=== PATIENT | female | born 1950 | race Caucasian/White ===

== ENCOUNTER → 2018-07-16 10:08 | Outpatient (CLI) | payer MEDICARE, SELFPAY ==
--- NOTE | 2018-07-16 10:26 | RAD_ITS ---
STUDY: X-RAY - PELVIS REASON FOR EXAM: Female, 67 years old. Pain in both hips. History of psoriatic arthropathy. TECHNIQUE: One view of the pelvis was obtained. COMPARISON: None. FINDINGS: There is a non-specific bowel gas pattern. Normal visualized soft tissue structures. Normal bilateral iliac wings, sacroiliac joints and visualized sacrum. Normal visualized bilateral superior and inferior pubic rami. Normal pubic symphysis. Normal ischial tuberosities. Normal visualized right femoral head. Minimal spur in the right superior acetabular rim. Mild narrowing of the right hip joint space. Normal visualized left femoral head. Normal left acetabulum. Normal left hip joint. RAD/Pelvis 1 or 2 Views IMPRESSION: 1. Minimal spur in the right superior acetabular rim and mild narrowing of the right hip joint space. 2. Normal pelvis and left hip. Electronically Signed: Meet Sales MD at 10:51 EDT , Service support ,
[2018-07-16 12:15] LABS: Absolute Lymphocyte Count 2.24 X10^3/ul (0.83-4.51); Absolute Neutrophil Count 5.5 X10^3/uL (2.0-7.7); Basophil# 0.05 X10^3/uL; Basophil% 0.6 % (0-1); Eosinophil# 0.21 X10^3/uL; Eosinophils% 2.5 % (0-5); Hematocrit 36.8 % (37-47); Hemoglobin 11.3 g/dl (12.0-15.0); Lymphocyte # 2.24 X10^3/ul (4.0); Lymphocyte % 26.9 % (19-41); Mean Corp Hgb Conc 30.7 g/gl (32-36); Mean Corpuscular Volume 91.1 fL (81-99); Mean Platelet Vol. 8.8 fl (6.2-12.0); Monocyte# 0.35 X10^3/uL; Monocyte% 4.2 % (0-10); Neutrophil # 5.46 X10^3/uL (2.7-7.7); Neutrophil % 65.6 % (47-70); POSITIVE COUNT NO; POSITIVE DIFFERENTIAL NO; POSITIVE MORPHOLOGY NO; Platelet Count 277 K/mm3 (150-450); RBC Distribution Width CV 15.3 % (11.6-14.6); RBC Distribution Width SD 50.9 fl (35.1-43.9); Red Blood Count 4.04 M/mm3 (4.2-5.4); White Blood Count 8.3 K/mm3 (4.4-11.0)
[2018-07-16 12:20] LABS: ALB/GLOB Ratio 0.8 RATIO (0.9-2.4); AST(SGOT) 20 U/L (15-37); Alanine Aminotransfer ALT/SGPT 20 U/L (13-56); Albumin, Serum 3.7 g/dL (3.2-5.0); Alkaline Phosphatase 94 U/L (45-117); Anion Gap 8 (5-15); BUN 20 mg/dL (7-18); Calcium,Total 9.4 mg/dL (8.5-10.1); Chloride 99 mmol/L (98-107); Creatinine, Serum 1.05 mg/dL (0.55-1.02); EST Glomerular Filtration Rate 56 mL/min (>60); Est Glom Filt Rate - Afr Amer 67 mL/min (>60); Globulin 4.4 g/dL (2.2-4.2); Glucose 111 mg/dL (74-106); Potassium 4.1 mmol/L (3.5-5.1); Protein, Total 8.1 g/dL (6.4-8.2); Rheumatoid Factor < 10.0 IU/mL (<15); Sodium Level 138 mmol/L (136-145)
[2018-07-18 12:21] LABS: ANTINUCLEAR ANTIBODIES DIRECT Negative (Negative)
[2018-07-19 16:07] LABS: QNTFERON TB Mitogen Value > 10.00 IU/mL (.); QNTFERON TB Nil Value 0.03 IU/mL (.); QNTFERON TB1+ Ag Value 0.02 IU/mL (.); QNTFERON TB2+ Ag Value 0.02 IU/mL (.)
[2018-07-20 11:42] LABS: CCP IgG Antibodies 19 units (0-19); HEPATITIS B SURFACE AG Negative (Negative); HLA B27 Negative (.); Hep B Surface Antibodies Non Reactive (.); Hep C Antibodies <0.1 s/co ratio (0.0-0.9); QNTIFERON TB Positive Criteria Negative (Negative)
== END ==
PROVIDERS: Referring Provider Internal Medicine Rheumatology; Visit Provider Internal Medicine Rheumatology
DX: L40.59 Other psoriatic arthropathy (principal); M15.9 Polyosteoarthritis, unspecified; I11.0 Hypertensive heart disease with heart failure; I50.9 Heart failure, unspecified; E78.5 Hyperlipidemia, unspecified; E03.9 Hypothyroidism, unspecified; R51 Headache; G47.33 Obstructive sleep apnea (adult) (pediatric); E66.9 Obesity, unspecified; I69.30 Unspecified sequelae of cerebral infarction
CPT/HCPCS: 36415; 72170; 80053; 81374; 85025; 86038; 86200; 86431; 86480; 86706; 86803; 87340

== ENCOUNTER → 2019-03-26 11:30 | Outpatient (CLI) | payer MEDICARE, SELFPAY ==
[2019-03-26 09:38] VITALS: BMI 52.3
[2019-03-26 12:35] LABS: Rheumatoid Factor < 10.0 IU/mL (<15)
[2019-03-27 13:18] LABS: ANTINUCLEAR ANTIBODIES DIRECT Negative (Negative)
[2019-03-29 09:43] LABS: CCP IgG Antibodies 12 units (0-19); Perinuclear Ab (P-ANCA) 1:20 titer (Neg:<1:20)
== END ==
PROVIDERS: Family Provider Internal Medicine; PCP Internal Medicine; Referring Provider Internal Medicine Critical Care Medicine; Visit Provider Internal Medicine Critical Care Medicine
DX: I25.10 Atherosclerotic heart disease of native coronary artery without angina pectoris (principal); Z98.61 Coronary angioplasty status; J98.4 Other disorders of lung; R06.02 Shortness of breath
CPT/HCPCS: 36415; 83880; 86038; 86200; 86225; 86235; 86256; 86431

== ENCOUNTER → 2019-04-03 13:02 | Outpatient (CLI) | payer MEDICARE, SELFPAY ==
[2019-03-26 09:38] VITALS: BMI 52.3
--- NOTE | 2019-04-03 13:03 | CT_ITS ---
STUDY: CT CHEST WITHOUT CONTRAST REASON FOR EXAM: Female, 68 years old. PT STATED SHORT OF BREATH, R/O RESTRICTIVE LUNG DISEASE RADIATION DOSAGE (If Supplied By Facility): CTDIvol = ( 28.71 ) mGy, DLP = ( 963.52 ) mGycm TECHNIQUE: Transaxial imaging was performed without the administration of intravenous contrast material. Multiplanar coronal and sagittal images were reformatted. Individualized dose optimization techniques were used for this CT. COMPARISON: None. FINDINGS: There is evidence of emphysematous changes with bullous formation. This evidence of linear scarring with bronchiectasis in the left lower lobe and to a lesser degree in the right lower lobe. There is evidence of a nonspecific bilateral diffuse areas of groundglass appearance. This is suggestive of a chronic interstitial scarring. There is no demonstrated pleural abnormality. There are calcifications of the coronary arteries. Normal mediastinum. Normal hilar regions. Normal unenhanced pulmonary arteries. There is atherosclerotic calcification of the aortic arch with tortuosity and elongation of the aortic arch and descending thoracic aorta. There are multi-level degenerative changes of the thoracic spine. There is no demonstrated abnormality of the visualized upper abdomen. CT/Chest without Contrast IMPRESSION: Findings in keeping with the scarring at the lung bases worse on the left side with bronchiectasis. Scattered bilateral areas of groundglass appearance. Electronically Signed: Efren Johnson, at 8:44 EST , Service support ,
== END ==
PROVIDERS: PCP Internal Medicine; Referring Provider Internal Medicine Critical Care Medicine; Visit Provider Internal Medicine Critical Care Medicine
DX: J98.4 Other disorders of lung (principal)
CPT/HCPCS: 71250

== ENCOUNTER → 2019-04-30 09:27 | Outpatient (CLI) | payer MEDICARE, SELFPAY ==
[2019-04-29 13:18] VITALS: BMI 52.7
[2019-04-30 10:25] LABS: Anion Gap 3 (5-15); BUN 14 mg/dL (7-18); BUN/Creat Ratio 14.5 RATIO (10-20); Calcium,Total 8.8 mg/dL (8.5-10.1); Chloride 104 mmol/L (98-107); Creatinine, Serum 0.96 mg/dL (0.55-1.02); EST Glomerular Filtration Rate 61 mL/min (>60); Est Glom Filt Rate - Afr Amer 74 mL/min (>60); Glucose 119 mg/dL (74-106); Potassium 3.8 mmol/L (3.5-5.1); Sodium Level 143 mmol/L (136-145)
[2019-04-30 10:34] LABS: BNP,B-Type NATRIURETIC PEPTIDE 363.5 pg/mL (0-100)
== END ==
PROVIDERS: PCP Internal Medicine; Referring Provider Internal Medicine Critical Care Medicine; Visit Provider Internal Medicine Critical Care Medicine
DX: I50.9 Heart failure, unspecified (principal); R76.8 Other specified abnormal immunological findings in serum; J96.11 Chronic respiratory failure with hypoxia
CPT/HCPCS: 36415; 80048; 83880

== ENCOUNTER 2019-05-03 12:32 | Inpatient (IN) | payer MEDICARE, SELFPAY ==
[2019-04-29 13:18] VITALS: BMI 52.7
[2019-05-03] VITALS (13 sets, daily range): BP systolic 108–145; BP diastolic 59–95; PULSE 78–115; RESP 16–22; TEMP 36.6–37.2; O2SAT 95–100; BMI 52.0
--- NOTE | 2019-05-03 13:16 | EKG12_ITS ---
Test Reason : SOB Blood Pressure : / mmHG Vent. Rate : 104 BPM Atrial Rate : 092 BPM P-R Int : 000 ms QRS Dur : 078 ms QT Int : 316 ms P-R-T Axes : 000 078 043 degrees QTc Int : 415 ms Atrial fibrillation with rapid ventricular response Low voltage QRS Abnormal ECG Confirmed by JOSUE LEWIS, JOVITA ([id number]), subeditor MOOK WORKMAN ([id number]) on 05/06/2019 2:06:56 PM Referred By: LIDYA Confirmed By:ZARA SALAS MD
--- NOTE | 2019-05-03 13:16 | RAD_ITS ---
STUDY: X-RAY CHEST REASON FOR EXAM: Female, 68 years old. DYSPNEA TECHNIQUE: PA and lateral views of the chest. COMPARISON: None. FINDINGS: EKG electrodes are seen. There is evidence of vascular congestion and mild degree of CHF. There is no demonstrated pleural abnormality. There is mild cardiac enlargement. Normal mediastinum and giorgio. Normal visualized pulmonary arteries. There is atherosclerotic calcification of the aortic arch with tortuosity. Normal visualized thoracic spine. Normal visualized ribs, clavicles, and shoulders. There is no demonstrated abnormality of the visualized soft tissue structures of the upper abdomen. RAD/Chest PA and Lateral IMPRESSION: Basilar congestion and mild degree of CHF. Mild cardiomegaly. Electronically Signed: Efren Johnson, at 13:59 EST , Service support ,
--- NOTE | 2019-05-03 13:17 | ED.DCSUM_ITS ---
History of Present Illness Chief Complaint: Shortness of Breath Informant: Patient Narrative: Patient presents the emergency department with difficulty maintaining her oxygen saturations on 6 L nasal cannula with exertion. She was seen by Dr. Harmon from pulmonology on the of this month. She is been diagnosed with a restrictive ventilatory impairment on PFTs. She has a history of obstructive sleep apnea and obesity. She has chronic hypoxic respiratory failure and is chronically on home O2. She also has a component of CHF and on CT in March noted an area of bronchiectasis in the left lower lobe with nonspecific bilateral groundglass changes. Methotrexate, for which she has been taking for psoriatic arthritis, has been on hold since the . She is also increased her Lasix from 20 mg to 40 mg since the . She notes her legs are more swollen than normal. She recently had a couple cardiac stents placed at [facility]. After her pulmonology visit on the her nasal cannula was increased to 6 L and her Lasix up to 40. She tells me today with exertion she was down to 79%. She is also on Coumadin for atrial fibrillation. She tells me that recently her INR was supratherapeutic. Past Medical History - Allergies and Home Meds Allergies/Adverse Reactions: Allergies No Known Allergies Allergy (Unverified 05/03/19 12:36) Primary Care Physician: Alejandra James DO [Primary Care Provider] - Smoking Status: Former smoker Review of Systems ROS: Unable to Obtain General: Denies: Chills, Fever, Sweats Eyes: Denies: Visual changes - bilaterally, Diplopia ENT: Denies: Rhinorrhea, Sore throat Cardiovascular: Denies: Chest pain, Palpitations Respiratory: Reports: Dyspnea, Dyspnea on exertion. Denies: Cough Gastrointestinal: Denies: Abdominal pain, Nausea, Vomiting, Diarrhea, Melena, Hematochezia Genitourinary: Denies: Dysuria, Hematuria, Frequency Musculoskeletal: Reports: Swelling. Denies: Back pain, Extremity Pain Skin: Denies: Rash, Wounds Neurological: Denies: Headache, Weakness, Numbness Physical Exam Vital Signs/Narrative: Vital Signs Temp Pulse Resp BP Pulse Ox 05/03/19 13:05 98.0 F 111 H 22 H 98 05/03/19 12:34 98 F 86 18 145/77 H 95 Inital Vital Signs reviewed: Yes General: Well nourished, Well developed, Obese, No Acute Distress Head: Normocephalic, Atraumatic Eyes: Perrl, EOMI ENT: Moist mucous membranes, No rhinorrhea Neck: Supple, Nontender Cardiovascular: No murmurs, Irregular, Tachycardia Respiratory: No distress, CTA bilaterally, Chest nontender Abdomen: Soft, Nontender, Nondistended, Normal bowel sounds Back: Nontender, Normal Inspection Extremities: Nontender, No edema Skin: Normal color, No rash Neurological: Alert, Oriented x3, Cranial nerves II-XII grossly intact, Normal Strength, Normal Sensation Psychological: Normal affect, Normal Mood Diagnostic/Tx/Re-eval - EKG Initial EKG Interpretation: Atrial Fibrillation - Atrial fibrillation with a rate of 104. Ectopy. - Medical Decision Making Patient's legs are more swollen than normal.. BNP is higher than it was the other day but only around 450. She becomes hypoxic with ambulation. She was given 60 mg of Lasix IV. Our plan is admission. Case was discussed with Dr. Carbajal and Dr. Penn ED Disposition - Plan for ED Patient: Disposition: Acute Care Hospital [facility] Diagnosis: CHF (congestive heart failure), Chronic respiratory failure, Hypoxemia Referrals: Alejandra James DO [Primary Care Provider] -
--- NOTE | 2019-05-03 13:20 | NURSING ---
NO OLD EKGS
[2019-05-03 13:41] LABS: Absolute Lymphocyte Count 1.33 X10^3/uL (0.83-4.51); Absolute Neutrophil Count 7.1 X10^3/uL (2.0-7.7); Basophil# 0.06 X10^3/uL; Basophil% 0.6 % (0-1); Eosinophil# 0.15 X10^3/uL; Eosinophils% 1.6 % (0-5); Hematocrit 32.7 % (37-47); Hemoglobin 9.7 g/dL (12.0-15.0); Lymphocyte # 1.33 X10^3/ul (4.0); Lymphocyte % 14.3 % (19-41); Mean Corp Hgb Conc 29.7 g/dL (32-36); Mean Corpuscular Hgb 29.6 pg (27.0-32.0); Mean Corpuscular Volume 99.7 fL (81-99); Mean Platelet Vol. 8.9 fl (6.2-12.0); Monocyte# 0.61 X10^3/uL; Monocyte% 6.6 % (0-10); NRBC Flagged by Analyzer 0 % (0-5); Neutrophil # 7.06 X10^3/uL (2.7-7.7); Neutrophil % 76.3 % (47-70); Platelet Count 221 K/mm3 (150-450); RBC Distribution Width CV 17.5 % (11.6-14.6); RBC Distribution Width SD 63.7 fl (35.1-43.9); Red Blood Count 3.28 M/mm3 (4.2-5.4); White Blood Count 9.3 K/mm3 (4.4-11.0)
[2019-05-03 13:58] LABS: ALB/GLOB Ratio 0.8 RATIO (0.9-2.4); AST(SGOT) 13 U/L (15-37); Alanine Aminotransfer ALT/SGPT 17 U/L (13-56); Albumin, Serum 3.1 g/dL (3.2-5.0); Alkaline Phosphatase 91 U/L (45-117); Anion Gap 3 (5-15); BUN 16 mg/dL (7-18); BUN/Creat Ratio 16.4 RATIO (10-20); Calcium,Total 8.5 mg/dL (8.5-10.1); Chloride 104 mmol/L (98-107); Creatinine, Serum 0.98 mg/dL (0.55-1.02); EST Glomerular Filtration Rate 60 mL/min (>60); Est Glom Filt Rate - Afr Amer 73 mL/min (>60); Estimated Creatinine Clearance 47.44 ml/min; Globulin 3.7 g/dL (2.2-4.2); Glucose 91 mg/dL (74-106); Potassium 3.7 mmol/L (3.5-5.1); Protein, Total 6.8 g/dL (6.4-8.2); Sodium Level 141 mmol/L (136-145)
[2019-05-03 14:00] LABS: International Normalized Ratio 2.1; Prothrombin Time (Protime)PT. 23.3 SECONDS (11.7-14.9)
[2019-05-03 14:11] LABS: BNP,B-Type NATRIURETIC PEPTIDE 436.5 pg/mL (0-100)
--- NOTE | 2019-05-03 16:24 | NURSING ---
MED SURG [facility] CHF, HYPOXIA, CRF
[2019-05-03] MEDS: Furosemide 100 MG/10 ML Vial 60 MG IV (16:27)
--- NOTE | 2019-05-03 17:16 | PCM.HP.STD ---
History of Present Illness Date of Admission: 05/03/19 Chief Complaint: SOB The patient is a 68 year old F with a PMH as below who presents with shortness of breath. 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 She came to [place] [facility] in March and some medication adjustments were made however she is remained short of breath. She was told when she was seen by pulmonology a few days ago to increase her Lasix for 3 days which she did on Monday, Monday, and . She states that she went back to taking her normal 20 mg of Lasix today however she has noticed that her legs have gotten more edematous over time. Unfortunately her care is spread out through multiple different health systems and this is the first time she is been to this institution. She states that she called her geospatial technologist today who asked her to come into the hospital for further evaluation, because with ambulation she says she was going down into the 70s, but at rest her oxygen was staying stable in the high 80s to low 90s. In the ER she was found to have a hemoglobin of 9.7 with a normal creatinine and elevated BNP to 436, this is steadily climbed from 323 on March 26, 2019. Chest x-ray in the ER shows basilar congestion and a mild degree of CHF. Past Medical History Past Medical History (Chronic Problems): Chronic Problems (Last Reviewed 03/26/19 @ 09:47 by Deena Arthur) Chronic respiratory failure (Chronic) Hypertension (Chronic) Medical History: Medical History (Last Reviewed 03/26/19 @ 09:47 by Deena Arthur) Depression (Acute) F32.9 CVA (cerebral vascular accident) (Acute) I63.9 Afib (Acute) I48.91 Pulmonary HTN (Acute) I27.20 Pneumonia (Acute) J18.9 Vitamin D deficiency (Acute) E55.9 Thyroid disease (Acute) E07.9 Sleep apnea (Acute) G47.30 Screening for breast cancer (Acute) Z12.39 RVH (right ventricular hypertrophy) (Acute) I51.7 Psoriatic arthritis (Acute) L40.50 Postoperative carotid endarterectomy surveillance, encounter for (Acute) Z48.812 Hypercholesterolemia (Acute) E78.00 Hypertension (Chronic) I10 History of CVA (cerebrovascular accident) (Acute) Z86.73 Enlarged heart (Acute) I51.7 Edema (Acute) R60.9 CAD S/P percutaneous coronary angioplasty (Acute) I25.10, Z98.61 Atrial flutter (Acute) I48.92 History of normal mammogram (Resolved) History of carotid artery reconstruction (Resolved) History of cardiac catherization with stent placement (Resolved) Allergies No Known Allergies Allergy (Unverified 05/03/19 12:36) Home Medications: Ambulatory Orders Medication Instructions Recorded clopidogrel 75 mg tablet 75 mg PO DAILY 03/25/19 ergocalciferol (vitamin D2) 1,250 1,250 mcg PO QWEEK 03/25/19 mcg (50,000 unit) capsule furosemide 20 mg tablet 20 mg PO DAILY 03/25/19 levothyroxine 137 mcg capsule 137 mcg PO DAILY 03/25/19 losartan 50 mg tablet 50 mg PO DAILY 03/25/19 metoprolol succinate 25 mg capsule 25 mg PO DAILY 03/25/19 sprinkle, ext. release 24 hr aspirin 81 mg tablet,delayed 81 mg PO DAILY 03/26/19 release warfarin 1 mg tablet 2 mg PO DAILY tab 03/26/19 ferrous sulfate 325 mg (65 mg 325 mg PO DAILY #1 tab 04/30/19 iron) tablet Atorvastatin Calcium 40 mg PO DAILY 05/03/19 Folic Acid 2 mg PO DAILY 05/03/19 Hydrocodone/Acetaminophen [Douglas 1 ea PO PRN PRN 05/03/19 5-325 Tablet] Melatonin [Vitajoy] 2.5 mg PO DAILY PRN 05/03/19 Prednisone 10 mg PO PRN PRN 05/03/19 Surgical History: Surgical History (Last Reviewed 04/30/19 @ 10:[address] Alfa Harmon, DO) H/O tubal ligation (Resolved) Z98.51 History of hysterectomy (Resolved) Z90.710 History of colonoscopy (Resolved) Z98.890 History of cataract surgery (Resolved) Z98.49 History of breast biopsy (Resolved) Z98.890 History of appendectomy (Resolved) Z90.49 Smoking Status: Former smoker Tobacco Use: Cigarettes Alcohol: None Drugs: None - *Family History Maternal Family History: Family History (Last Reviewed 04/30/19 @ 08:21 by Deena Arthur) Other Cancer Cardiac disorder Diabetes Lung disease Review of Systems Constitutional: Denies: Chills, Fever, Weight Change HEENT: Denies: Head Aches, Sinus Congestion, Sinus Drainage Cardiovascular: Denies: Chest Pain, Palpitations Respiratory: Reports: Shortness of Breath. Denies: Cough, Shortness of breath at rest, Sputum production Gastrointestinal: Denies: Abdominal Pain, Nausea, Vomiting Genitourinary: Denies: Dysuria Musculoskeletal: Denies: Joint Pain, Joint Tenderness Skin: Denies: Rash, Wounds Neurological: Denies: Numbness, Tingling, Focal weakness Psychiatric: Denies: Anxiety, Depression Hematologic/ Lymphatic: Denies: Easy Bruising, Easy Bleeding VTE Information - Inpt Only VTE Present on Admission: No - Physical Exam Vitals/I&O's: Vital Signs Temp Pulse Resp BP Pulse Ox 98.9 F 89 19 H 125/59 H 100 05/03/19 16:23 05/03/19 16:23 05/03/19 16:23 05/03/19 16:23 05/03/19 16:23 Oxygen Flow Rate (L/min) 4 Oxygen Delivery Method Nasal Cannula Weight: 303 lb Body Mass Index (BMI) 52.0 General: Alert, Oriented x3, Cooperative, No apparent distress HEENT: Atraumatic, PERRLA, EOMI, Normocephalic Oral: Moist Mucosa Neck: Supple, No JVD Lungs: Clear to auscultation, Normal air movement, No rhonchi, No wheeze, No rales Cardiovascular: Regular rate, Normal S1, Normal S2, No murmurs, - - Irregular rhythm Abdomen: Soft, Non Tender, Non-Distended, No Hepato-splenomegaly, Obese Extremities: Capillary Refill Less than 3 Seconds, Edema - 1+ pitting edema bilaterally Skin: No rashes, No breakdown Neurological: Neuro grossly intact, Sensory exam intact to light touch and pain Psych/Mental Status: Normal Affect, Appropriate Laboratory Results 05/03/19 13:30: WBC 9.3, RBC 3.28 L, Hgb 9.7 L, Hct 32.7 L, MCV 99.7 H, MCH 29.6, MCHC 29.7 L, RDW Std Deviation 63.7 H, RDW Coeff of Omar 17.5 H, Plt Count 221, MPV 8.9, Immature Gran % (Auto) 0.600, Neut % (Auto) 76.3 H, Lymph % (Auto) 14.3 L, [place] % (Auto) 6.6, Eos % (Auto) 1.6, Baso % (Auto) 0.6, Absolute Neuts (auto) 7.1, Absolute Lymphs (auto) 1.33, Nucleated RBC % 0 05/03/19 13:30: PT 23.3 H, INR 2.1 05/03/19 13:30: Sodium 141, Potassium 3.7, Chloride 104, Carbon Dioxide 34.0 H, Anion Gap 3 L, BUN 16, Creatinine 0.98, Estim Creat Clear Calc 47.44, Est GFR (MDRD) Af Amer 73, Est GFR (MDRD) Non-Af 60, BUN/Creatinine Ratio 16.4, Glucose 91, Calcium 8.5, Total Bilirubin 0.50, AST 13 L, ALT 17, Alkaline Phosphatase 91, Troponin I < 0.015, Total Protein 6.8, Albumin 3.1 L, Globulin 3.7, Albumin/Globulin Ratio 0.8 L 05/03/19 13:30: B-Natriuretic Peptide 436.5 H Assessment/Plan All Active Problems (Last Reviewed 04/30/19 @ 10:[address] Alfa Harmon, DO) CHF (congestive heart failure) (Acute) Hypoxemia (Acute) H/O tubal ligation (Resolved) Depression (Acute) CVA (cerebral vascular accident) (Acute) Afib (Acute) Pulmonary HTN (Acute) Pneumonia (Acute) Vitamin D deficiency (Acute) Thyroid disease (Acute) Sleep apnea (Acute) Screening for breast cancer (Acute) RVH (right ventricular hypertrophy) (Acute) Psoriatic arthritis (Acute) Postoperative carotid endarterectomy surveillance, encounter for (Acute) Hypercholesterolemia (Acute) History of CVA (cerebrovascular accident) (Acute) Enlarged heart (Acute) Edema (Acute) CAD S/P percutaneous coronary angioplasty (Acute) Atrial flutter (Acute) History of normal mammogram (Resolved) History of hysterectomy (Resolved) History of colonoscopy (Resolved) History of cataract surgery (Resolved) History of carotid artery reconstruction (Resolved) History of cardiac catherization with stent placement (Resolved) History of breast biopsy (Resolved) History of appendectomy (Resolved) 1. Restrictive lung disease with bronchiectasis and acute on chronic hypoxic respiratory failure secondary to acute on chronic diastolic heart failure/JOE -She also has a history of psoriatic arthritis and was recently taken off her methotrexate as this could have been causing her restrictive lung disease -She is on oxygen at home as well as supposedly on CPAP but she has been inconsistent with using her CPAP -We will consult pulmonology for assistance -Continue with oxygen therapy -The acute hypoxic respiratory failure is likely secondary to heart failure given her elevated BNP, will obtain an echo -Continue with nighttime CPAP -We will diurese her with IV Lasix 40 twice daily -She did have a cardiac cath done on that showed a normal LV EF and she had stents placed in the proximal LAD in the proximal RCA -She had a wedge pressure of 24 2. CAD status post stent/diastolic CHF/A. fib/HTN/HLD/morbid obesity -BMI 52, I discussed lifestyle modifications with her and her -We will continue with her aspirin, Plavix, Coumadin, her INR is therapeutic -Continue with Lipitor, and losartan -Continue with metoprolol 3. 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 Hypothyroidism -Stable -Continue Synthroid DVT: Coumadin Code Visit Inpatient E&M: 52773 Init Hosp L3
--- NOTE | 2019-05-03 17:17 | NURSING ---
PCU HYPOXIC RESP FAILURE [facility]
[2019-05-03] MEDS: Atorvastatin Calcium 40 MG Tablet PO (22:05)
[2019-05-04] VITALS (13 sets, daily range): BP systolic 105–131; BP diastolic 53–59; PULSE 70–89; RESP 16–18; TEMP 36.6–36.7; O2SAT 77–98
--- NOTE | 2019-05-04 05:55 | ECHOCS_ITS ---
Reason For Study: Dyspnea/SOB Procedure This was a 2D Doppler, Color Flow transthoracic echocardiogram. The study was technically difficult. Contrast injection was performed. Exam performed portable in patient room. Left Ventricle Normal left ventricle. Mild concentric left ventricular hypertrophy. Left ventricular systolic function is normal. The estimated ejection fraction is 60% %. Stage 1 diastolic dysfunction. No regional wall motion abnormalities noted. Right Ventricle Normal right ventricle. Normal systolic function. Atria The left atrium is mildly enlarged. Normal right atrium. Normal atrial septum. Mitral Valve Normal mitral valve. Mild-Moderate (1-2+) eccentric mitral valve insufficiency. Tricuspid Valve Normal tricuspid valve. Mild eccentric tricuspid valve insufficiency. Aortic Valve Normal aortic valve. There is no aortic stenosis. No aortic valve insufficiency. Great Vessels Normal aortic root. Pericardium/Pleural No pericardial effusion. Medication Diluted definity 2ml given slow IV push to enhance endocardial definition. MMode/2D Measurements & Calculations LVIDd: 4.7 cm IVSd: 1.0 cm Ao root diam: 3.3 cm LVIDs: 3.1 cm LVPWd: 1.1 cm RVDd: 4.4 cm FS: 33.4 % LAV(MOD-bp): 68.2 ml LA A4 area: 24.4 cm2 LA dimension(2D): 4.1 cm LAV(MOD-bp) Indexed: 29.2 ml/m2 LAV(MOD-sp2): 59.8 ml LAV(MOD-sp4): 74.9 ml RA A4 area: 22.5 cm2 Doppler Measurements & Calculations MV E max leonardo: 113.7 cm/sec Lat Peak E' Leonardo: 8.1 cm/sec Med Peak E' Leonardo: 5.9 cm/sec MV A max leonardo: 63.9 cm/sec E/E' lat: 14.1 E/E' med: 19.2 MV E/A: 1.8 Ao V2 max: 117.8 cm/sec LV V1 max: 86.3 cm/sec PA V2 max: 103.5 cm/sec Ao max P.5 mmHg LV V1 max P.0 mmHg Ao V2 mean: 85.9 cm/sec Ao mean P.1 mmHg Ao V2 VTI: 24.7 cm TR max leonardo: 301.2 cm/sec TR max P.3 mmHg Interpretation Summary Normal left ventricle. The estimated ejection fraction is 60% %. Left ventricular systolic function is normal. The left atrium is mildly enlarged. Mild-Moderate (1-2+) eccentric mitral valve insufficiency. Mild eccentric tricuspid valve insufficiency. No aortic valve insufficiency. Ordering Physician: Jordan Penn Referring Physician: Alejandra James Performed By: Roxana Balderrama, LAURACS, RVT
[2019-05-04] MEDS: Levothyroxine 137 MCG Tablet PO (06:07)
[2019-05-04] MEDS: HYDROcodone Bitartrate/Apap 5/325 Tablet PO (06:07)
[2019-05-04 06:38] LABS: Absolute Lymphocyte Count 1.35 X10^3/uL (0.83-4.51); Absolute Neutrophil Count 6.3 X10^3/uL (2.0-7.7); Basophil# 0.06 X10^3/uL; Basophil% 0.7 % (0-1); Eosinophil# 0.24 X10^3/uL; Eosinophils% 2.8 % (0-5); Hematocrit 34.4 % (37-47); Lymphocyte # 1.35 X10^3/ul (4.0); Lymphocyte % 15.7 % (19-41); Mean Corp Hgb Conc 29.1 g/dL (32-36); Mean Corpuscular Hgb 29.3 pg (27.0-32.0); Mean Corpuscular Volume 100.9 fL (81-99); Mean Platelet Vol. 8.7 fl (6.2-12.0); Monocyte# 0.64 X10^3/uL; Monocyte% 7.5 % (0-10); NRBC Flagged by Analyzer 0 % (0-5); Neutrophil # 6.25 X10^3/uL (2.7-7.7); Neutrophil % 72.7 % (47-70); Platelet Count 217 K/mm3 (150-450); RBC Distribution Width CV 17.5 % (11.6-14.6); RBC Distribution Width SD 64.9 fl (35.1-43.9); Red Blood Count 3.41 M/mm3 (4.2-5.4); White Blood Count 8.6 K/mm3 (4.4-11.0)
[2019-05-04 06:43] LABS: Prothrombin Time (Protime)PT. 22.2 SECONDS (11.7-14.9)
[2019-05-04 07:09] LABS: Anion Gap 4 (5-15); BUN 12 mg/dL (7-18); BUN/Creat Ratio 13.4 RATIO (10-20); Calcium,Total 8.5 mg/dL (8.5-10.1); Chloride 98 mmol/L (98-107); EST Glomerular Filtration Rate 67 mL/min (>60); Est Glom Filt Rate - Afr Amer 81 mL/min (>60); Estimated Creatinine Clearance 51.66 ml/min; Glucose 109 mg/dL (74-106); Potassium 3.3 mmol/L (3.5-5.1); Sodium Level 140 mmol/L (136-145)
--- NOTE | 2019-05-04 07:29 | PCM.CONS.PUL ---
Reason for Consult Date of Consultation: 05/04/19 Reason for Consultation: Acute on chronic hypoxemic respiratory failure History of Present Illness: The patient is a 68-year-old female, with a history as outlined below, who presented to the emergency department on May 03 with worsening shortness of breath and hypoxemia. I currently follow the patient in the pulmonary medicine clinic due to a history of restrictive airway disease, chronic hypoxemic respiratory failure and obstructive sleep apnea. I last saw her in the pulmonary medicine clinic on April 30. At that time, the patient noted worsening shortness of breath and an inability to maintain her oxygen saturations at or above 88% in her home environment, despite being on 4 L/min [id number]. The patient also noted that in January 2019 she underwent successful PCI with drug-eluting stent placement to the proximal LAD and proximal RCA. She is on a chronic Lasix regimen of only 20 mg daily. At the time of her last office visit, I did recommend that her Lasix be increased to 40 mg daily. A high-resolution chest CT had also been obtained in March which revealed evidence of bronchiectasis and nonspecific bilateral groundglass changes. Over concerns for potential methotrexate lung toxicity, I called and discussed her case with her senior solutions architect, Dr. Perez, who was in agreement to hold her methotrexate effective April 30. The patient does also have a history of coronary artery disease status post PCI and psoriatic arthritis on methotrexate. The patient does have a [id number] smoking history, having quit completely in 2005. 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 In addition, the patient has pulmonary hypertension with previous cardiac catheterization revealing a PA of 49/21/34, PCWP of 24. Left ventriculography revealed global LV systolic function was normal with an ejection fraction of 55 to 60%. Pulmonary function studies completed in January 2019 revealed no evidence of a large airways obstructive ventilatory defect. There was no significant bronchodilator response. Total lung capacity is reduced to 54% of predicted. Diffusing capacity was similarly reduced. Titration polysomnogram completed in November 2017 revealed the need for nocturnal CPAP with a pressure support of 9 cm of water. A high-resolution chest CT was obtained in March, which revealed evidence of bronchiectasis within the left lower lobe and nonspecific bilateral groundglass changes. On presentation to the emergency department, the patient was noted to be afebrile and hemodynamically stable. She was maintaining appropriate resting oxygen saturations on 4 L/min. Laboratory evaluation revealed no evidence of a leukocytosis. Chemistry profile was largely unrevealing. BNP was elevated to 436. Plain film chest x-ray revealed some central pulmonary vascular congestion. The patient received IV Lasix and was subsequently admitted to the progressive care unit for further management. Past Medical History Past Medical History (Chronic Problems): Chronic Problems (Last Reviewed 03/26/19 @ 09:47 by Deena Arthur) Chronic respiratory failure (Chronic) Hypertension (Chronic) Medical History: Medical History (Last Reviewed 03/26/19 @ 09:47 by Deena Arthur) Depression (Acute) F32.9 CVA (cerebral vascular accident) (Acute) I63.9 Afib (Acute) I48.91 Pulmonary HTN (Acute) I27.20 Pneumonia (Acute) J18.9 Vitamin D deficiency (Acute) E55.9 Thyroid disease (Acute) E07.9 Sleep apnea (Acute) G47.30 Screening for breast cancer (Acute) Z12.39 RVH (right ventricular hypertrophy) (Acute) I51.7 Psoriatic arthritis (Acute) L40.50 Postoperative carotid endarterectomy surveillance, encounter for (Acute) Z48.812 Hypercholesterolemia (Acute) E78.00 Hypertension (Chronic) I10 History of CVA (cerebrovascular accident) (Acute) Z86.73 Enlarged heart (Acute) I51.7 Edema (Acute) R60.9 CAD S/P percutaneous coronary angioplasty (Acute) I25.10, Z98.61 Atrial flutter (Acute) I48.92 History of normal mammogram (Resolved) History of carotid artery reconstruction (Resolved) History of cardiac catherization with stent placement (Resolved) Allergies No Known Allergies Allergy (Unverified 05/03/19 12:36) Home Medications: Ambulatory Orders Medication Instructions Recorded clopidogrel 75 mg tablet 75 mg PO DAILY 03/25/19 ergocalciferol (vitamin D2) 1,250 1,250 mcg PO QWEEK 03/25/19 mcg (50,000 unit) capsule furosemide 20 mg tablet 20 mg PO DAILY 03/25/19 levothyroxine 137 mcg capsule 137 mcg PO DAILY 03/25/19 losartan 50 mg tablet 50 mg PO DAILY 03/25/19 metoprolol succinate 25 mg capsule 25 mg PO DAILY 03/25/19 sprinkle, ext. release 24 hr aspirin 81 mg tablet,delayed 81 mg PO DAILY 03/26/19 release warfarin 1 mg tablet 2 mg PO SUMOWETHSA tab 03/26/19 Atorvastatin Calcium 40 mg PO QHS 05/03/19 Ferrous Sulfate 325 mg PO DAILY 05/03/19 Folic Acid 1 mg PO BID 05/03/19 Hydrocodone/Acetaminophen [Hurley 1 ea PO PRN PRN 05/03/19 5-325 Tablet] Melatonin [Vitajoy] 2.5 mg PO DAILY 05/03/19 Prednisone 10 mg PO PRN PRN 05/03/19 Warfarin [Coumadin ([facility])] 1 mg PO TUFR 05/03/19 Surgical History: Surgical History (Last Reviewed 04/30/19 @ 10:[address] Alfa Harmon, DO) H/O tubal ligation (Resolved) Z98.51 History of hysterectomy (Resolved) Z90.710 History of colonoscopy (Resolved) Z98.890 History of cataract surgery (Resolved) Z98.49 History of breast biopsy (Resolved) Z98.890 History of appendectomy (Resolved) Z90.49 Smoking Status: Former smoker Tobacco Use: Cigarettes Alcohol: None Drugs: None - *Family History Maternal Family History: Family History (Last Reviewed 04/30/19 @ 08:21 by Deena Arthur) Other Cancer Cardiac disorder Diabetes Lung disease Review of Systems Constitutional: Denies: Chills, Fever Eyes: Denies: Blurred vision, Double vision HEENT: Denies: Head Aches, Sinus Congestion, Sinus Drainage Cardiovascular: Denies: Chest Pain, Chest Tightness Respiratory: Reports: Shortness of Breath, Shortness of breath upon exertion. Denies: Cough, Sputum production Gastrointestinal: Denies: Abdominal Pain, Nausea, Vomiting Genitourinary: Denies: Dysuria Musculoskeletal: Denies: Joint Pain, Joint Tenderness Skin: Denies: Rash, Wounds Neurological: Denies: Numbness, Tingling, Focal weakness Psychiatric: Denies: Anxiety, Depression, Homicidal Ideations, Suicidal Ideations Hematologic/ Lymphatic: Reports: Anemia Patient Problems: Active and Suspected Problems (Last Reviewed 03/26/19 @ 09:47 by Deena Arthur) CHF (congestive heart failure) (Acute) Hypoxemia (Acute) Objective: The patient's most recent lab work, culture data and imaging studies have all been personally reviewed. - Physical Exam Vitals/I&O's: Vital Signs Temp Pulse Resp BP Pulse Ox 97.9 F 89 18 111/59 L 97 05/04/19 03:45 05/04/19 03:45 05/04/19 03:45 05/04/19 03:45 05/04/19 03:45 Oxygen Flow Rate (L/min) 4 Oxygen Delivery Method Nasal Cannula Weight: 293 lb 10.491 oz Body Mass Index (BMI) 52.0 Intake and Output for Last 24 Hours 05/02/19 05/03/19 05/04/19 23:59 23:59 23:59 Intake Total 240 / 240 240 / 240 Balance 240 / 240 240 / 240 General: Alert, Oriented x3, Cooperative, No apparent distress, - - Morbidly obese. Sitting upright in bed. HEENT: Atraumatic, PERRLA, Normocephalic Oral: No Gingival or Mucosal Lesions/ Ulcerations Neck: Supple, No Nodes, Trachea Midline Lungs: No rales, Diminished, Wheezes Cardiovascular: Regular rate, Regular Rhythm, Normal S1, Normal S2, No murmurs Abdomen: Bowel Sounds Present, Soft, Non Tender, Obese Extremities: No clubbing, No cyanosis, Edema Skin: No breakdown Musculoskeletal: No Tenderness to Palpation of Joints or Extremities, No Muscle Wasting Lymphatic: No Cervical, Supraclavicular, or Inguinal Adenopathy Neurological: Cranial nerves II-XII grossly intact, Neuro grossly intact Psych/Mental Status: Alert and oriented to time, place, person, mood and affect Labs (Last 48 Hours) 05/03/19 05/03/19 05/03/19 13:30 13:30 13:30 WBC 9.3 RBC 3.28 L Hgb 9.7 L Hct 32.7 L MCV 99.7 H MCH 29.6 MCHC 29.7 L RDW Std Deviation 63.7 H RDW Coeff of Omar 17.5 H Plt Count 221 MPV 8.9 Immature Gran % (Auto) 0.600 Neut % (Auto) 76.3 H Lymph % (Auto) 14.3 L Stonewall % (Auto) 6.6 Eos % (Auto) 1.6 Baso % (Auto) 0.6 Absolute Neuts (auto) 7.1 Absolute Lymphs (auto) 1.33 Nucleated RBC % 0 PT 23.3 H INR 2.1 Sodium 141 Potassium 3.7 Chloride 104 Carbon Dioxide 34.0 H Anion Gap 3 L BUN 16 Creatinine 0.98 Estim Creat Clear Calc 47.44 Est GFR (MDRD) Af Amer 73 Est GFR (MDRD) Non-Af 60 BUN/Creatinine Ratio 16.4 Glucose 91 Calcium 8.5 Total Bilirubin 0.50 AST 13 L ALT 17 Alkaline Phosphatase 91 Troponin I < 0.015 B-Natriuretic Peptide Total Protein 6.8 Albumin 3.1 L Globulin 3.7 Albumin/Globulin Ratio 0.8 L 05/03/19 05/04/19 05/04/19 13:30 05:32 05:32 WBC 8.6 RBC 3.41 L Hgb 10.0 L Hct 34.4 L MCV 100.9 H MCH 29.3 MCHC 29.1 L RDW Std Deviation 64.9 H RDW Coeff of Omar 17.5 H Plt Count 217 MPV 8.7 Immature Gran % (Auto) 0.600 Neut % (Auto) 72.7 H Lymph % (Auto) 15.7 L Stonewall % (Auto) 7.5 Eos % (Auto) 2.8 Baso % (Auto) 0.7 Absolute Neuts (auto) 6.3 Absolute Lymphs (auto) 1.35 Nucleated RBC % 0 PT INR Sodium 140 Potassium 3.3 L Chloride 98 Carbon Dioxide 38.0 H Anion Gap 4 L BUN 12 Creatinine 0.90 Estim Creat Clear Calc 51.66 Est GFR (MDRD) Af Amer 81 Est GFR (MDRD) Non-Af 67 BUN/Creatinine Ratio 13.4 Glucose 109 H Calcium 8.5 Total Bilirubin AST ALT Alkaline Phosphatase Troponin I B-Natriuretic Peptide 436.5 H Total Protein Albumin Globulin Albumin/Globulin Ratio 05/04/19 05:32 WBC RBC Hgb Hct MCV MCH MCHC RDW Std Deviation RDW Coeff of Omar Plt Count MPV Immature Gran % (Auto) Neut % (Auto) Lymph % (Auto) Stonewall % (Auto) Eos % (Auto) Baso % (Auto) Absolute Neuts (auto) Absolute Lymphs (auto) Nucleated RBC % PT 22.2 H INR 2.0 Sodium Potassium Chloride Carbon Dioxide Anion Gap BUN Creatinine Estim Creat Clear Calc Est GFR (MDRD) Af Amer Est GFR (MDRD) Non-Af BUN/Creatinine Ratio Glucose Calcium Total Bilirubin AST ALT Alkaline Phosphatase Troponin I B-Natriuretic Peptide Total Protein Albumin Globulin Albumin/Globulin Ratio Clinical Impression(s) from Imaging Studies Chest X-Ray 05/03/19 13:16 IMPRESSION: Basilar congestion and mild degree of CHF. Mild cardiomegaly. Electronically Signed: Efren Johnson, at 13:59 EST , Service support , Current Medications Hydrocodone Bitart/Acetaminophen (Hurley 5mg-325mg) 1 tablet PO Q6H PRN PRN PRN Reason: Pain or Fever Last Admin: 05/04/19 06:07 Dose: 1 tablet Documented by: Aspirin (Ecotrin) 81 mg PO DAILYCM [facility] Atorvastatin Calcium (Lipitor) 40 mg PO QHS [facility] Last Admin: 05/03/19 22:05 Dose: 40 mg Documented by: Clopidogrel Bisulfate (Plavix) 75 mg PO DAILY [facility] Ergocalciferol (Vitamin D) 50,000 unit PO Mo@1000 [facility] Ferrous Sulfate ([facility]) [facility] Folic Acid (Folic Acid) 1 mg PO BIDCM [facility] Furosemide (Lasix) 40 mg IV BID@0800,1600 [facility] Sodium Chloride () 250 mls @ 15 mls/hr IV .[id number] PRN PRN Reason: Saline Flush Sodium Chloride () 250 mls @ 15 mls/hr IV .[id number] PRN PRN Reason: Additional IVPB Infusion Levothyroxine Sodium (Synthroid) 137 mcg PO DAILY@0600 [facility] Last Admin: 05/04/19 06:07 Dose: 137 mcg Documented by: Losartan Potassium (Cozaar) 50 mg PO DAILY [facility] Metoprolol Succinate (Toprol Xl (Beta Jessica)) 25 mg PO DAILY [facility] Sodium Chloride () 10 - 40 ml IV UD PRN PRN Reason: SALINE FLUSH Warfarin Sodium (Coumadin (Pbkc)) 1 mg PO TuFr@1700 [facility] Last Admin: 05/03/19 20:16 Dose: 1 mg Documented by: Warfarin Sodium (Coumadin (Pbkc)) 2 mg PO SuMoWeThSa@1700 [facility] Assessment/Plan All Active Problems (Last Reviewed 04/30/19 @ 10:[address] Alfa Harmon DO) CHF (congestive heart failure) (Acute) Hypoxemia (Acute) H/O tubal ligation (Resolved) Depression (Acute) CVA (cerebral vascular accident) (Acute) Afib (Acute) Pulmonary HTN (Acute) Pneumonia (Acute) Vitamin D deficiency (Acute) Thyroid disease (Acute) Sleep apnea (Acute) Screening for breast cancer (Acute) RVH (right ventricular hypertrophy) (Acute) Psoriatic arthritis (Acute) Postoperative carotid endarterectomy surveillance, encounter for (Acute) Hypercholesterolemia (Acute) History of CVA (cerebrovascular accident) (Acute) Enlarged heart (Acute) Edema (Acute) CAD S/P percutaneous coronary angioplasty (Acute) Atrial flutter (Acute) History of normal mammogram (Resolved) History of hysterectomy (Resolved) History of colonoscopy (Resolved) History of cataract surgery (Resolved) History of carotid artery reconstruction (Resolved) History of cardiac catherization with stent placement (Resolved) History of breast biopsy (Resolved) History of appendectomy (Resolved) RECOMMENDATIONS: 1. Continue scheduled diuretic therapy. 2. Obtain echocardiogram today. 3. Continue systemic anticoagulation. 4. Blood gas is consistent with chronic CO2 retention. Wean supplemental oxygen to maintain saturations between 88 and 92%. 5. Start CPAP at 9 cm water with naps and nightly. 6. Ambulate patient in hallway and document flow rate needed to maintain saturations at or above 88%. IMPRESSIONS: 1. Acute on chronic hypoxemic respiratory failure The patient's chronic hypoxemic respiratory failure appears to be worsening with time. While this could be related to an underlying hypersensitivity reaction to methotrexate, I cannot discount the possibility of heart failure contributing to the findings noted on chest CT. for now, I would recommend continuing diuretic therapy as tolerated by renal function. Arterial blood gas obtained this morning did indicate the presence of chronic CO2 retention, likely secondary to alveolar hypoventilation in the setting of obesity. Recommend weaning oxygen to maintain saturations 88 to 92%. If the patient does not respond clinically to the use of diuretics, consideration can be given to systemic corticosteroids. 2. Restrictive airway disease The patient's most symptoms recent pulmonary function studies revealed evidence of a restrictive ventilatory impairment with symmetric reduction in diffusing capacity. The patient's most recent high-resolution chest CT did reveal a focal area of bronchiectasis in the left lower lobe with nonspecific bilateral groundglass changes. In addition, she is on chronic methotrexate therapy. The findings noted on the chest CT could certainly represent a component of pulmonary edema versus that of a hypersensitivity reaction to the patient's methotrexate. Accordingly, following a discussion with the patient's senior solutions architect, her methotrexate was discontinued. Agree with attempts at diuresis for now. 3. Obstructive sleep apnea Continue CPAP therapy at 9 cm of water, per home regimen with naps and nightly. 4. Morbid obesity/alveolar hypoventilation/psoriatic arthritis/coronary artery disease Complicates care, management, recovery and prognosis. Okay to continue home medications as indicated. Encourage incentive spirometer use. This note was generated with [employer] dictation software. It may contain incorrect words, spelling, and punctuation that were not noted in checking the note before signing. Code Visit Inpatient E&M: 32727 Init Hosp L3
[2019-05-04 08:16] LABS: Allen Test POS; Base Excess 13 mmol/L (-2 to +2); Bicarbonate 38.2 mmol/L (22-26); Blood Gas Specimen Type ART; O2 Delivery Device Nasal Can; PO2 79 mmHG (75-100); SITE L Radial; SO2 95 % (95-99); Time Given 808; Total Carbon Dioxide 40 mmol/L; pCO2 61.3 mmHg (35-45)
[2019-05-04] MEDS: Ferrous Sulfate 325 MG Tablet PO (09:02)
[2019-05-04] MEDS: Losartan Potassium 50 MG Tablet PO (09:02)
[2019-05-04] MEDS: Folic Acid 1 MG Tablet PO ×2 (09:02→18:03)
[2019-05-04] MEDS: Clopidogrel Bisulfate 75 MG Tablet PO (09:02)
[2019-05-04] MEDS: Metoprolol(XL)Succ 25 MG Tablet PO (09:02)
[2019-05-04] MEDS: Aspirin E.C. 81 MG Tablet PO (09:02)
[2019-05-04] MEDS: Furosemide 40 MG/4 ML Vial IV ×2 (09:03→16:42)
--- NOTE | 2019-05-04 12:13 | CM.UR ---
RN CM Assessment Introduced role of RN CM to patient. Patient is alert and able to participate in RN CM Assessment. Care providers, pharmacy, and demographics verified. No family at bedside. Presentation: shortness of breath Admit Dx: Hypoxic respiratory failure Re-Admit: No Barriers/Issues: Motivation, Patient states that she is stubborn and the more someone pushes her to do something the less likely she is to do it. PCP: [facility] Specialists: Pulm: Dr. Harmon, cardio: Dr. Menendez, Arthritis: Dr. Ernesto Perez, vascular surgeon: Dr. Tovar Preferred Pharmacy: [facility] mail order Insurance: [employer] Benefit: Yes [employer] plan LNOK: , Td LW/HPOA: None, declines info at this time. Living Arrangements: Lives in 1 story home with 2 steps into home. States plans on putting grab bar at the steps. States has some trouble with balance going up these steps. ADL?s: Needs assistance with dressing lower body, cleaning/maintaining house, shopping, cooking. DME: Has home o2 (4 liters); cpap, toilet frame, walker, cane, grab bars. Patient states she is noncompliant with cpap d/t difficulty switching o2 over. States is usually in bed before her, doesn't want to wake him plus if she wakes him then he will keep her up. Discussed methods of switching her cpap over to her oxygen and she wear her portable to bedroom then plug it in there. Also discussed her difficulty with the arthritis and being able to manipulate the connections. States that she does have nasal only mask and she is satisfied with that. She is a nose breather and is claustrophobic so cannot do the whole mask. She does mention that she does have a lot of issues with nasal/sinus dryness/stuffiness from wearing cpap. Confirmed she does have humidification. DME co: [facility] HHC: None SNF: None Goal: Home with NN. DC PLAN: Discussed possible HHC. Instructed her on what they could do, should she need it at discharge. Will let us know if she feels it is necessary. Gurdeep Wilson RN, CCM.
--- NOTE | 2019-05-04 13:25 | PCM.PN.HOSP ---
<Julio King - Last Filed: 05/04/19 13:25> Patient Problems: Active and Suspected Problems (Last Reviewed 03/26/19 @ 09:47 by Deena Arthur) CHF (congestive heart failure) (Acute) Hypoxemia (Acute) Reason for Visit: SOB Subjective: pt with mild improvement in SOB overnight. She chronically uses 4lpm o2 at home at baseline. She has been up to 6-7 lpm at baseline in the past. She has mild LE edema. She has no cough, fevers, or chills. Vitals/I&O's: Vital Signs Temp Pulse Resp BP Pulse Ox 97.8 F 72 16 116/57 L 96 05/04/19 08:28 05/04/19 09:02 05/04/19 08:28 05/04/19 09:02 05/04/19 10:22 Oxygen Flow Rate (L/min) 3 Oxygen Delivery Method Nasal Cannula Weight: 293 lb 10.491 oz Body Mass Index (BMI) 52.0 Intake and Output for Last 24 Hours 05/02/19 05/03/19 05/04/19 23:59 23:59 23:59 Intake Total 240 / 240 960 / 960 Balance 240 / 240 960 / 960 General: Alert, Oriented x3, Cooperative HEENT: Atraumatic, PERRLA, EOMI, Normocephalic Neck: Supple, No JVD, Negative Carotid Bruits Lungs: Normal air movement, Rales - mild rales in BL bases Cardiovascular: Regular rate, No murmurs Abdomen: Bowel Sounds Present, Soft, Non Tender, Obese Extremities: Capillary Refill Less than 3 Seconds, Edema - 1+ pitting BLE Skin: No rashes, No breakdown Musculoskeletal: No Tenderness to Palpation of Joints or Extremities Neurological: Cranial nerves II-XII grossly intact Psych/Mental Status: Normal Affect, Appropriate, Alert and oriented to time, place, person, mood and affect Laboratory Results 05/03/19 13:30: WBC 9.3, RBC 3.28 L, Hgb 9.7 L, Hct 32.7 L, MCV 99.7 H, MCH 29.6, MCHC 29.7 L, RDW Std Deviation 63.7 H, RDW Coeff of Omar 17.5 H, Plt Count 221, MPV 8.9, Immature Gran % (Auto) 0.600, Neut % (Auto) 76.3 H, Lymph % (Auto) 14.3 L, Mckinley % (Auto) 6.6, Eos % (Auto) 1.6, Baso % (Auto) 0.6, Absolute Neuts (auto) 7.1, Absolute Lymphs (auto) 1.33, Nucleated RBC % 0 05/03/19 13:30: PT 23.3 H, INR 2.1 05/03/19 13:30: Sodium 141, Potassium 3.7, Chloride 104, Carbon Dioxide 34.0 H, Anion Gap 3 L, BUN 16, Creatinine 0.98, Estim Creat Clear Calc 47.44, Est GFR (MDRD) Af Amer 73, Est GFR (MDRD) Non-Af 60, BUN/Creatinine Ratio 16.4, Glucose 91, Calcium 8.5, Total Bilirubin 0.50, AST 13 L, ALT 17, Alkaline Phosphatase 91, Troponin I < 0.015, Total Protein 6.8, Albumin 3.1 L, Globulin 3.7, Albumin/Globulin Ratio 0.8 L 05/03/19 13:30: B-Natriuretic Peptide 436.5 H 05/04/19 05:32: WBC 8.6, RBC 3.41 L, Hgb 10.0 L, Hct 34.4 L, MCV 100.9 H, MCH 29.3, MCHC 29.1 L, RDW Std Deviation 64.9 H, RDW Coeff of Omar 17.5 H, Plt Count 217, MPV 8.7, Immature Gran % (Auto) 0.600, Neut % (Auto) 72.7 H, Lymph % (Auto) 15.7 L, Mckinley % (Auto) 7.5, Eos % (Auto) 2.8, Baso % (Auto) 0.7, Absolute Neuts (auto) 6.3, Absolute Lymphs (auto) 1.35, Nucleated RBC % 0 05/04/19 05:32: Sodium 140, Potassium 3.3 L, Chloride 98, Carbon Dioxide 38.0 H, Anion Gap 4 L, BUN 12, Creatinine 0.90, Estim Creat Clear Calc 51.66, Est GFR (MDRD) Af Amer 81, Est GFR (MDRD) Non-Af 67, BUN/Creatinine Ratio 13.4, Glucose 109 H, Calcium 8.5 05/04/19 05:32: PT 22.2 H, INR 2.0 05/04/19 08:09: Specimen Type ART, Sample Site L Radial, pH 7.40, Bicarbonate Actual 38.2 H, POC Total CO2 40, Base Excess 13 H, O2 Saturation 95, ABG pCO2 61.3 H, ABG pO2 79, Tutu Test POS, O2 Delivery Device Nasal Can, Liter Flow 4.0, Blood Gas Notified Whom HOSP MD, Blood Gas Notified Time 808 Current Medications Hydrocodone Bitart/Acetaminophen (Omega 5mg-325mg) 1 tablet PO Q6H PRN PRN PRN Reason: Pain or Fever Last Admin: 05/04/19 06:07 Dose: 1 tablet Documented by: [facility]) [facility] Last Admin: 05/04/19 09:02 Dose: 81 mg Documented by: Atorvastatin Calcium (Lipitor) 40 mg PO QHS [facility] Last Admin: 05/03/19 22:05 Dose: 40 mg Documented by: Clopidogrel Bisulfate (Plavix) 75 mg PO DAILY [facility] Last Admin: 05/04/19 09:02 Dose: 75 mg Documented by: Ergocalciferol (Vitamin D) 50,000 unit PO Mo@1000 [facility] Ferrous Sulfate (Ferrous Sulfate) [facility] Last Admin: 05/04/19 09:02 Dose: 325 mg Documented by: Folic Acid (Folic Acid) [facility] Last Admin: 05/04/19 09:02 Dose: 1 mg Documented by: Furosemide (Lasix) 40 mg IV BID@0800,1600 [facility] Last Admin: 05/04/19 09:03 Dose: 40 mg Documented by: Sodium Chloride () 250 mls @ 15 mls/hr IV .[id number] PRN PRN Reason: Saline Flush Sodium Chloride () 250 mls @ 15 mls/hr IV .[id number] PRN PRN Reason: Additional IVPB Infusion Levothyroxine Sodium (Synthroid) 137 mcg PO DAILY@0600 [facility] Last Admin: 05/04/19 06:07 Dose: 137 mcg Documented by: Losartan Potassium (Cozaar) 50 mg PO DAILY [facility] Last Admin: 05/04/19 09:02 Dose: 50 mg Documented by: Metoprolol Succinate (Toprol Xl (Beta Jessica)) 25 mg PO DAILY [facility] Last Admin: 05/04/19 09:02 Dose: 25 mg Documented by: Potassium Chloride (K-Dur) 40 meq PO BIDCM [facility] Last Admin: 05/04/19 09:02 Dose: 40 meq Documented by: Sodium Chloride () 10 - 40 ml IV UD PRN PRN Reason: SALINE FLUSH Warfarin Sodium (Coumadin (Pbkc)) 1 mg PO TuFr@1700 [facility] Last Admin: 05/03/19 20:16 Dose: 1 mg Documented by: Warfarin Sodium (Coumadin (Pbkc)) 2 mg PO SuMoWeThSa@1700 [facility] STROKE Vital Signs/Narrative: Vital Signs Pulse Ox 05/04/19 10:22 96 Medical Necessity - Tobacco Use Smoking Status: Former smoker Tobacco Use: Cigarettes Assessment/Plan All Active Problems (Last Reviewed 04/30/19 @ 10:[address] Alfa Harmon, DO) CHF (congestive heart failure) (Acute) Hypoxemia (Acute) H/O tubal ligation (Resolved) Depression (Acute) CVA (cerebral vascular accident) (Acute) Afib (Acute) Pulmonary HTN (Acute) Pneumonia (Acute) Vitamin D deficiency (Acute) Thyroid disease (Acute) Sleep apnea (Acute) Screening for breast cancer (Acute) RVH (right ventricular hypertrophy) (Acute) Psoriatic arthritis (Acute) Postoperative carotid endarterectomy surveillance, encounter for (Acute) Hypercholesterolemia (Acute) History of CVA (cerebrovascular accident) (Acute) Enlarged heart (Acute) Edema (Acute) CAD S/P percutaneous coronary angioplasty (Acute) Atrial flutter (Acute) History of normal mammogram (Resolved) History of hysterectomy (Resolved) History of colonoscopy (Resolved) History of cataract surgery (Resolved) History of carotid artery reconstruction (Resolved) History of cardiac catherization with stent placement (Resolved) History of breast biopsy (Resolved) History of appendectomy (Resolved) 1. Acute on chronic diastolic CHF, chronic hypoxic respiratory failure, complicated by pulmonary HTN - Continue lasix. Minimal rales and edema on exam. Previously had right heart cath with outside hospital -obtain records. Replace potassium. Continue daily weights, I/O, fluid restriction. -Echo EF 60%, St1 diastolic dysfxn, 1-2+ MVI, no wall abnormalities normal LV/RV size and function 2. Groundglass changes on imaging - COPD vs MTX side effect. MTX stopped. Pulm following. 3. Psoriatic arthritis - mtx stopped. on prednisone maintenance therapy. Continue folate. 4. JOE - she admits she does not use CPAP as prescribed 5. Hx CVA 6. Afib - flutter on the monitor. rate controlled. INR therapeutic. Continue metoprolol 7. Macrocytic anemia - check iron/tibc/folate/b12/tsh. Continue po iron, folate. 8. Hypothyroidism - check tsh, continue synthroid 9. HTN -stable 10. Hx CVA - asp/statin/plavix 11. Morbid obesity - motion picture director consult. DVT ppx: warfarin DC planning: mild improvement. continue diuresis. on baseline o2. This patient was seen by Julio King PA-C under the supervision of Doctor Chandler. <Danika Arteaga - Last Filed: 05/04/19 14:10> Vitals/I&O's: Vital Signs Temp Pulse Resp BP Pulse Ox 97.8 F 72 16 116/57 L 77 05/04/19 08:28 05/04/19 09:02 05/04/19 08:28 05/04/19 09:02 05/04/19 13:28 Oxygen Flow Rate (L/min) [ 3 AMBULATION with Oxygen] Oxygen Flow Rate (L/min) 3 Oxygen Delivery Method Nasal Cannula Weight: 133.2 kg Body Mass Index (BMI) 52.0 Intake and Output for Last 24 Hours 05/02/19 05/03/19 05/04/19 23:59 23:59 23:59 Intake Total 240 / 240 960 / 960 Balance 240 / 240 960 / 960 Laboratory Results 05/03/19 13:30: PT 23.3 H, INR 2.1 05/03/19 13:30: B-Natriuretic Peptide 436.5 H 05/04/19 05:32: WBC 8.6, RBC 3.41 L, Hgb 10.0 L, Hct 34.4 L, MCV 100.9 H, MCH 29.3, MCHC 29.1 L, RDW Std Deviation 64.9 H, RDW Coeff of Omar 17.5 H, Plt Count 217, MPV 8.7, Immature Gran % (Auto) 0.600, Neut % (Auto) 72.7 H, Lymph % (Auto) 15.7 L, Mckinley % (Auto) 7.5, Eos % (Auto) 2.8, Baso % (Auto) 0.7, Absolute Neuts (auto) 6.3, Absolute Lymphs (auto) 1.35, Nucleated RBC % 0 05/04/19 05:32: Sodium 140, Potassium 3.3 L, Chloride 98, Carbon Dioxide 38.0 H, Anion Gap 4 L, BUN 12, Creatinine 0.90, Estim Creat Clear Calc 51.66, Est GFR (MDRD) Af Amer 81, Est GFR (MDRD) Non-Af 67, BUN/Creatinine Ratio 13.4, Glucose 109 H, Calcium 8.5 05/04/19 05:32: PT 22.2 H, INR 2.0 05/04/19 08:09: Specimen Type ART, Sample Site L Radial, pH 7.40, Bicarbonate Actual 38.2 H, POC Total CO2 40, Base Excess 13 H, O2 Saturation 95, ABG pCO2 61.3 H, ABG pO2 79, Tutu Test POS, O2 Delivery Device Nasal Can, Liter Flow 4.0, Blood Gas Notified Whom [facility] , Blood Gas Notified Time 808 05/04/19 13:45: Iron Pending, TIBC Pending, Iron Saturation Pending, Folate Pending, TSH Pending 05/04/19 13:45: Vitamin B12 Pending Current Medications Hydrocodone Bitart/Acetaminophen (Omega 5mg-325mg) 1 tablet PO Q6H PRN PRN PRN Reason: Pain or Fever Last Admin: 05/04/19 06:07 Dose: 1 tablet Documented by: Aspirin (Ecotrin) [facility] Last Admin: 05/04/19 09:02 Dose: 81 mg Documented by: Atorvastatin Calcium (Lipitor) 40 mg PO QHS [facility] Last Admin: 05/03/19 22:05 Dose: 40 mg Documented by: Clopidogrel Bisulfate (Plavix) 75 mg PO DAILY [facility] Last Admin: 05/04/19 09:02 Dose: 75 mg Documented by: Ergocalciferol (Vitamin D) 50,000 unit PO Mo@1000 [facility] Ferrous Sulfate (Ferrous Sulfate) 325 [facility] Last Admin: 05/04/19 09:02 Dose: 325 mg Documented by: Folic Acid (Folic Acid) [facility] Last Admin: 05/04/19 09:02 Dose: 1 mg Documented by: Furosemide (Lasix) 40 mg IV BID@0800,1600 [facility] Last Admin: 05/04/19 09:03 Dose: 40 mg Documented by: Sodium Chloride () 250 mls @ 15 mls/hr IV .[id number] PRN PRN Reason: Saline Flush Sodium Chloride () 250 mls @ 15 mls/hr IV .[id number] PRN PRN Reason: Additional IVPB Infusion Levothyroxine Sodium (Synthroid) 137 mcg PO DAILY@0600 [facility] Last Admin: 05/04/19 06:07 Dose: 137 mcg Documented by: Losartan Potassium (Cozaar) 50 mg PO DAILY [facility] Last Admin: 05/04/19 09:02 Dose: 50 mg Documented by: Metoprolol Succinate (Toprol Xl (Beta Jessica)) 25 mg PO DAILY [facility] Last Admin: 05/04/19 09:02 Dose: 25 mg Documented by: Potassium Chloride (K-Dur) 40 meq PO BIDCM [facility] Last Admin: 05/04/19 09:02 Dose: 40 meq Documented by: Sodium Chloride () 10 - 40 ml IV UD PRN PRN Reason: SALINE FLUSH Warfarin Sodium (Coumadin (Pbkc)) 1 mg PO TuFr@1700 [facility] Last Admin: 05/03/19 20:16 Dose: 1 mg Documented by: Warfarin Sodium (Coumadin (Pbkc)) 2 mg PO SuMoWeThSa@1700 [facility] Vital Signs/Narrative: Vital Signs Pulse Ox Pulse Ox 05/04/19 13:28 77 05/04/19 10:22 96 Assessment/Plan This patient was seen in conjunction with TANYA Villalba. I have independently interviewed and examined the patient and reviewed pertinent historical, laboratory, and other data. Please refer to TANYA Villalba note for his patient's presentation, findings, and recommendations. I have reviewed and his note and concur with his documentation Patient was seen and examined. She feels a little improved. Less fatigued. On 3L oxygen, on 4L at home. She has been diuresing since being admitted. Has lost about 8 pounds of water weight. Physical Exam: Gen: Morbidly obese, not pale, not jaundiced, on 3L oxygen, not ill-looking CVS:HS I +II, regular, no murmurs RESP: Diminished at lung bases GI: BS present and normal, soft, nontender, no palpable organs EXT:No edema ASSESSMENT: 1. Acute on chronic diastolic CHF 2. Chronic hypoxic respiratory failure 3. Pulmonary hypertension 4. Psoriatic arthritis 5. JOE 6. H/o CVA 7. Hypothyroidism 8. Morbid obesity 9. Chronic A. fib Plan: Continue on IV Lasix, blood restriction, CHF protocol Continue on Coumadin Code Visit Inpatient E&M: [id number] Subs Hosp L2
--- NOTE | 2019-05-04 13:29 | NURSING ---
Patient's pulse ox checked on 3L NC at rest in bed, it was 97%. Pt ambulated in the hallway aprox 100 feet, on 3L NC, and pulse ox dropped to 77%. After sitting back down in the chair, her pulse ox came back up to 92% within one minute of sitting down.
--- NOTE | 2019-05-04 13:59 | NURSING ---
this RN is taking over care of this patient at this time. Report received by ROX Woody.
[2019-05-04 15:28] LABS: Iron 72 ug/dL (50-170); Iron Binding Capacity,Total 331 ug/dL (250-450); PERCENT IRON SATURATION 21.8 % (15.0-55.0); Thyroid Stim Hormone (TSH) 6.41 uIU/mL (0.358-3.74)
[2019-05-04] MEDS: 0.9% Saline Lock 10 ML Syringe IV (16:42)
[2019-05-04] MEDS: Atorvastatin Calcium 40 MG Tablet PO (22:14)
[2019-05-05] VITALS (14 sets, daily range): BP systolic 93–132; BP diastolic 56–82; PULSE 60–171; RESP 18–20; TEMP 36.7–36.8; O2SAT 90–93
--- NOTE | 2019-05-05 03:08 | CPS ---
PT ON OWN CPAP FROM HOME WITH 4L BLED IN
[2019-05-05] MEDS: Levothyroxine 137 MCG Tablet PO (06:22)
[2019-05-05 06:33] LABS: Anion Gap 5 (5-15); BUN 17 mg/dL (7-18); Calcium,Total 8.8 mg/dL (8.5-10.1); Chloride 99 mmol/L (98-107); EST Glomerular Filtration Rate 59 mL/min (>60); Est Glom Filt Rate - Afr Amer 71 mL/min (>60); Glucose 107 mg/dL (74-106); Potassium 3.9 mmol/L (3.5-5.1); Sodium Level 139 mmol/L (136-145)
[2019-05-05 06:43] LABS: International Normalized Ratio 1.9
--- NOTE | 2019-05-05 07:56 | PN_ITS ---
Patient Problems: Active and Suspected Problems (Last Reviewed 03/26/19 @ 09:47 by Deena Arthur) CHF (congestive heart failure) (Acute) Hypoxemia (Acute) Subjective: The patient was seen and examined at the bedside this morning. Events from the last 24 hours have been reviewed. The patient is currently afebrile, hemodynamically stable and maintaining appropriate oxygen saturations on 3 L/min via nasal cannula. INR is a bit subtherapeutic this morning at 1.9. Arterial blood gas obtained yesterday did reveal evidence of chronic CO2 retention. Creatinine is stable this morning. The patient's weight has improved in the setting of ongoing diuresis. The patient did ambulate in the hallway yesterday but desaturated to 77%, despite being on 3 L/min via nasal cannula. Objective: The patient's most recent lab work, culture data and imaging studies have all been personally reviewed. Surface echocardiogram revealed mild concentric LVH with an ejection fraction of 60% and stage I diastolic dysfunction. - Physical Exam Vitals/I&O's: Vital Signs Temp Pulse Resp BP Pulse Ox 98.0 F 68 18 112/56 L 90 05/05/19 04:15 05/05/19 06:48 05/05/19 04:15 05/05/19 04:15 05/05/19 04:15 Oxygen Flow Rate (L/min) [ 3 AMBULATION with Oxygen] Oxygen Flow Rate (L/min) 3 Oxygen Delivery Method Nasal Cannula Weight: 290 lb 9.108 oz Body Mass Index (BMI) 52.0 Intake and Output for Last 24 Hours 05/03/19 05/04/19 05/05/19 23:59 23:59 23:59 Intake Total 240 / 240 1260 / 1460 300 / 300 Output Total 600 / 600 Balance 240 / 240 1260 / 1260 -300 / -300 General: Alert, Cooperative, No apparent distress HEENT: Atraumatic, PERRLA, Normocephalic Oral: No Gingival or Mucosal Lesions/ Ulcerations Neck: Supple, No Nodes, Trachea Midline Lungs: No rhonchi, No wheeze, No rales, Diminished Cardiovascular: Regular rate, Regular Rhythm, Normal S1, Normal S2, No murmurs Abdomen: Bowel Sounds Present, Soft, Non Tender, Obese Extremities: No clubbing, No cyanosis, Edema Skin: No breakdown Musculoskeletal: No Tenderness to Palpation of Joints or Extremities Lymphatic: No Cervical, Supraclavicular, or Inguinal Adenopathy Neurological: Cranial nerves II-XII grossly intact, Neuro grossly intact Psych/Mental Status: Normal Affect, Appropriate Labs (Last 48 Hours) 05/03/19 05/03/19 05/03/19 13:30 13:30 13:30 WBC 9.3 RBC 3.28 L Hgb 9.7 L Hct 32.7 L MCV 99.7 H MCH 29.6 MCHC 29.7 L RDW Std Deviation 63.7 H RDW Coeff of Omar 17.5 H Plt Count 221 MPV 8.9 Immature Gran % (Auto) 0.600 Neut % (Auto) 76.3 H Lymph % (Auto) 14.3 L [place] % (Auto) 6.6 Eos % (Auto) 1.6 Baso % (Auto) 0.6 Absolute Neuts (auto) 7.1 Absolute Lymphs (auto) 1.33 Nucleated RBC % 0 PT 23.3 H INR 2.1 Specimen Type Sample Site pH Bicarbonate Actual POC Total CO2 Base Excess O2 Saturation ABG pCO2 ABG pO2 Tutu Test O2 Delivery Device Liter Flow Blood Gas Notified Whom Blood Gas Notified Time Sodium 141 Potassium 3.7 Chloride 104 Carbon Dioxide 34.0 H Anion Gap 3 L BUN 16 Creatinine 0.98 Estim Creat Clear Calc 47.44 Est GFR (MDRD) Af Amer 73 Est GFR (MDRD) Non-Af 60 BUN/Creatinine Ratio 16.4 Glucose 91 Calcium 8.5 Iron TIBC Iron Saturation Total Bilirubin 0.50 AST 13 L ALT 17 Alkaline Phosphatase 91 Troponin I < 0.015 B-Natriuretic Peptide Total Protein 6.8 Albumin 3.1 L Globulin 3.7 Albumin/Globulin Ratio 0.8 L Vitamin B12 Folate TSH 05/03/19 05/04/19 05/04/19 13:30 05:32 05:32 WBC 8.6 RBC 3.41 L Hgb 10.0 L Hct 34.4 L MCV 100.9 H MCH 29.3 MCHC 29.1 L RDW Std Deviation 64.9 H RDW Coeff of Omar 17.5 H Plt Count 217 MPV 8.7 Immature Gran % (Auto) 0.600 Neut % (Auto) 72.7 H Lymph % (Auto) 15.7 L [place] % (Auto) 7.5 Eos % (Auto) 2.8 Baso % (Auto) 0.7 Absolute Neuts (auto) 6.3 Absolute Lymphs (auto) 1.35 Nucleated RBC % 0 PT INR Specimen Type Sample Site pH Bicarbonate Actual POC Total CO2 Base Excess O2 Saturation ABG pCO2 ABG pO2 Tutu Test O2 Delivery Device Liter Flow Blood Gas Notified Whom Blood Gas Notified Time Sodium 140 Potassium 3.3 L Chloride 98 Carbon Dioxide 38.0 H Anion Gap 4 L BUN 12 Creatinine 0.90 Estim Creat Clear Calc 51.66 Est GFR (MDRD) Af Amer 81 Est GFR (MDRD) Non-Af 67 BUN/Creatinine Ratio 13.4 Glucose 109 H Calcium 8.5 Iron TIBC Iron Saturation Total Bilirubin AST ALT Alkaline Phosphatase Troponin I B-Natriuretic Peptide 436.5 H Total Protein Albumin Globulin Albumin/Globulin Ratio Vitamin B12 Folate TSH 05/04/19 05/04/19 05/04/19 05:32 08:09 13:45 WBC RBC Hgb Hct MCV MCH MCHC RDW Std Deviation RDW Coeff of Omar Plt Count MPV Immature Gran % (Auto) Neut % (Auto) Lymph % (Auto) [place] % (Auto) Eos % (Auto) Baso % (Auto) Absolute Neuts (auto) Absolute Lymphs (auto) Nucleated RBC % PT 22.2 H INR 2.0 Specimen Type ART Sample Site L Radial pH 7.40 Bicarbonate Actual 38.2 H POC Total CO2 40 Base Excess 13 H O2 Saturation 95 ABG pCO2 61.3 H ABG pO2 79 Tutu Test POS O2 Delivery Device Nasal Can Liter Flow 4.0 Blood Gas Notified Whom [facility] Blood Gas Notified Time 808 Sodium Potassium Chloride Carbon Dioxide Anion Gap BUN Creatinine Estim Creat Clear Calc Est GFR (MDRD) Af Amer Est GFR (MDRD) Non-Af BUN/Creatinine Ratio Glucose Calcium Iron 72 TIBC 331 Iron Saturation 21.8 Total Bilirubin AST ALT Alkaline Phosphatase Troponin I B-Natriuretic Peptide Total Protein Albumin Globulin Albumin/Globulin Ratio Vitamin B12 Folate 78.10 H TSH 6.41 H 05/04/19 05/05/19 05/05/19 13:45 05:45 05:45 WBC RBC Hgb Hct MCV MCH MCHC RDW Std Deviation RDW Coeff of Omar Plt Count MPV Immature Gran % (Auto) Neut % (Auto) Lymph % (Auto) [place] % (Auto) Eos % (Auto) Baso % (Auto) Absolute Neuts (auto) Absolute Lymphs (auto) Nucleated RBC % PT 22.0 H INR 1.9 Specimen Type Sample Site pH Bicarbonate Actual POC Total CO2 Base Excess O2 Saturation ABG pCO2 ABG pO2 Tutu Test O2 Delivery Device Liter Flow Blood Gas Notified Whom Blood Gas Notified Time Sodium 139 Potassium 3.9 Chloride 99 Carbon Dioxide 35.0 H Anion Gap 5 BUN 17 Creatinine 1.00 Estim Creat Clear Calc 46.50 Est GFR (MDRD) Af Amer 71 Est GFR (MDRD) Non-Af 59 L BUN/Creatinine Ratio 17.0 Glucose 107 H Calcium 8.8 Iron TIBC Iron Saturation Total Bilirubin AST ALT Alkaline Phosphatase Troponin I B-Natriuretic Peptide Total Protein Albumin Globulin Albumin/Globulin Ratio Vitamin B12 Pending Folate TSH Clinical Impression(s) from Imaging Studies Chest X-Ray 05/03/19 13:16 IMPRESSION: Basilar congestion and mild degree of CHF. Mild cardiomegaly. Electronically Signed: Efren Johnson, at 13:59 EST , Service support , Current Medications Hydrocodone Bitart/Acetaminophen ([place] 5mg-325mg) 1 tablet PO Q6H PRN PRN PRN Reason: Pain or Fever Last Admin: 05/04/19 06:07 Dose: 1 tablet Documented by: Aspirin ([facility]cotrin) [facility] Last Admin: 05/04/19 09:02 Dose: 81 mg Documented by: Atorvastatin Calcium (Lipitor) 40 mg PO QHS [facility] Last Admin: 05/04/19 22:14 Dose: 40 mg Documented by: Clopidogrel Bisulfate (Plavix) 75 mg PO DAILY [facility] Last Admin: 05/04/19 09:02 Dose: 75 mg Documented by: Ergocalciferol (Vitamin D) 50,000 unit PO Mo@1000 [facility] Ferrous Sulfate (Ferrous Sulfate) 325 [facility] Last Admin: 05/04/19 09:02 Dose: 325 mg Documented by: Folic Acid (Folic Acid) 1 mg [facility]ID[facility]ANK[facility] Last Admin: 05/04/19 18:03 Dose: 1 mg Documented by: Furosemide (Lasix) 40 mg IV BID@0800,1600 [facility] Last Admin: 05/04/19 16:42 Dose: 40 mg Documented by: Sodium Chloride () 250 mls @ 15 mls/hr IV .[id number] PRN PRN Reason: Saline Flush Sodium Chloride () 250 mls @ 15 mls/hr IV .[id number] PRN PRN Reason: Additional IVPB Infusion Levothyroxine Sodium (Synthroid) 137 mcg PO DAILY@0600 [facility] Last Admin: 05/05/19 06:22 Dose: 137 mcg Documented by: Losartan Potassium (Cozaar) 50 mg PO DAILY [facility] Last Admin: 05/04/19 09:02 Dose: 50 mg Documented by: Metoprolol Succinate (Toprol Xl (Beta Jessica)) 25 mg PO DAILY [facility] Last Admin: 05/04/19 09:02 Dose: 25 mg Documented by: Potassium Chloride (K-Dur) 40 meq PO BIDCM [facility] Last Admin: 05/04/19 18:03 Dose: 40 meq Documented by: Sodium Chloride () 10 - 40 ml IV UD PRN PRN Reason: SALINE FLUSH Last Admin: 05/04/19 16:42 Dose: 20 ml Documented by: Warfarin Sodium (Coumadin (Pbkc)) 1 mg PO TuFr@1700 [facility] Last Admin: 05/03/19 20:16 Dose: 1 mg Documented by: Warfarin Sodium (Coumadin (Pbkc)) 2 mg PO SuMoWeThSa@1700 [facility] Last Admin: 05/04/19 18:02 Dose: 2 mg Documented by: Medical Necessity - Tobacco Use Smoking Status: Former smoker Tobacco Use: Cigarettes Assessment/Plan All Active Problems (Last Reviewed 04/30/19 @ 10:[address] Alfa Harmon, DO) CHF (congestive heart failure) (Acute) Hypoxemia (Acute) H/O tubal ligation (Resolved) Depression (Acute) CVA (cerebral vascular accident) (Acute) Afib (Acute) Pulmonary HTN (Acute) Pneumonia (Acute) Vitamin D deficiency (Acute) Thyroid disease (Acute) Sleep apnea (Acute) Screening for breast cancer (Acute) RVH (right ventricular hypertrophy) (Acute) Psoriatic arthritis (Acute) Postoperative carotid endarterectomy surveillance, encounter for (Acute) Hypercholesterolemia (Acute) History of CVA (cerebrovascular accident) (Acute) Enlarged heart (Acute) Edema (Acute) CAD S/P percutaneous coronary angioplasty (Acute) Atrial flutter (Acute) History of normal mammogram (Resolved) History of hysterectomy (Resolved) History of colonoscopy (Resolved) History of cataract surgery (Resolved) History of carotid artery reconstruction (Resolved) History of cardiac catherization with stent placement (Resolved) History of breast biopsy (Resolved) History of appendectomy (Resolved) RECOMMENDATIONS: 1. Continue scheduled diuretic therapy. 2. Continue systemic anticoagulation. 3. Blood gas is consistent with chronic CO2 retention. Wean supplemental oxyg en to maintain saturations between 88 and 92%. 4. Continue CPAP at 9 cm water with naps and nightly. 5. Physical therapy evaluation today. 6. Continue to mobilize patient in hallway and document exertional oxygen saturation. IMPRESSIONS: 1. Acute on chronic hypoxemic respiratory failure The patient's chronic hypoxemic respiratory failure appears to be worsening with time. While this could be related to an underlying hypersensitivity reaction to methotrexate, I cannot discount the possibility of heart failure contributing to the findings noted on chest CT. For now, I would recommend continuing diuretic therapy as tolerated by renal function. Arterial blood gas indicated the presence of chronic CO2 retention, likely secondary to alveolar hypoventilation in the setting of obesity. Recommend weaning oxygen to maintain saturations 88 to 92%. If the patient does not respond clinically to the use of diuretics, consideration can be given to systemic corticosteroids. 2. Restrictive airway disease The patient's most symptoms recent pulmonary function studies revealed evidence of a restrictive ventilatory impairment with symmetric reduction in diffusing capacity. The patient's most recent high-resolution chest CT did reveal a focal area of bronchiectasis in the left lower lobe with nonspecific bilateral groundglass changes. In addition, she is on chronic methotrexate therapy. The findings noted on the chest CT could certainly represent a component of pulmonary edema versus that of a hypersensitivity reaction to the patient's methotrexate. 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 Agree with attempts at diuresis for now. 3. Obstructive sleep apnea Continue CPAP therapy at 9 cm of water, per home regimen with naps and nightly. 4. Morbid obesity/alveolar hypoventilation/psoriatic arthritis/coronary artery disease Complicates care, management, recovery and prognosis. Okay to continue home medications as indicated. Encourage incentive spirometer use. This note was generated with [employer] software. It may contain incorrect words, spelling, and punctuation that were not noted in checking the note before signing. Code Visit Inpatient E&M: 96851 Subs Hosp L2
[2019-05-05] MEDS: Metoprolol(XL)Succ 25 MG Tablet PO (08:58)
[2019-05-05] MEDS: Ferrous Sulfate 325 MG Tablet PO (08:59)
[2019-05-05] MEDS: Furosemide 40 MG/4 ML Vial IV (08:59)
[2019-05-05] MEDS: Losartan Potassium 50 MG Tablet PO (08:59)
[2019-05-05] MEDS: Clopidogrel Bisulfate 75 MG Tablet PO (08:59)
[2019-05-05] MEDS: Folic Acid 1 MG Tablet PO ×2 (08:59→17:20)
[2019-05-05] MEDS: Aspirin E.C. 81 MG Tablet PO (08:59)
[2019-05-05] MEDS: 0.9% Saline Lock 10 ML Syringe IV (08:59)
--- NOTE | 2019-05-05 18:05 | PN_ITS ---
Patient Problems: Active and Suspected Problems (Last Reviewed 03/26/19 @ 09:47 by Deena Arthur) CHF (congestive heart failure) (Acute) Hypoxemia (Acute) Reason for Visit: Follow-up on acute CHF exacerbation. Subjective: Patient was seen and examined. She feels much improved. Her leg swelling is resolved. Denies any chest pain or dizziness or palpitation. Objective: Physical exam: Gen: Morbidly obese, not pale, not jaundiced, on 3L oxygen, not ill-looking CVS:HS I +II, regular, no murmurs RESP: Diminished at lung bases GI: BS present and normal, soft, nontender, no palpable organs EXT: Trace bilateral edema Vitals/I&O's: Vital Signs Temp Pulse Resp BP Pulse Ox 98.0 F 60 20 H 93/63 93 05/05/19 15:12 05/05/19 15:12 05/05/19 15:12 05/05/19 17:14 05/05/19 15:12 Oxygen Flow Rate (L/min) [ 3 AMBULATION with Oxygen] Oxygen Flow Rate (L/min) 3 Oxygen Delivery Method Nasal Cannula Weight: 131.8 kg Body Mass Index (BMI) 52.0 Intake and Output for Last 24 Hours 05/03/19 05/04/19 05/05/19 23:59 23:59 23:59 Intake Total 240 / 240 1260 / 1460 600 / 600 Output Total 900 / 900 Balance 240 / 240 1260 / 1260 -300 / -300 Laboratory Results 05/05/19 05:45: PT 22.0 H, INR 1.9 05/05/19 05:45: Sodium 139, Potassium 3.9, Chloride 99, Carbon Dioxide 35.0 H, Anion Gap 5, BUN 17, Creatinine 1.00, Estim Creat Clear Calc 46.50, Est GFR (MDRD) Af Amer 71, Est GFR (MDRD) Non-Af 59 L, BUN/Creatinine Ratio 17.0, Glucose 107 H, Calcium 8.8 Current Medications Hydrocodone Bitart/Acetaminophen ([place] 5mg-325mg) 1 tablet PO Q6H PRN PRN PRN Reason: Pain or Fever Last Admin: 05/04/19 06:07 Dose: 1 tablet Documented by: Aspirin (Ecotrin) 81 mg PO DAILYCM [facility]OV[facility] Last Admin: 05/05/19 08:59 Dose: 81 mg Documented by: Atorvastatin Calcium (Lipitor) 40 mg PO QHS [facility] Last Admin: 05/04/19 22:14 Dose: 40 mg Documented by: Clopidogrel Bisulfate (Plavix) 75 mg PO DAILY [facility] Last Admin: 05/05/19 08:59 Dose: 75 mg Documented by: Ergocalciferol (Vitamin D) 50,000 unit PO Mo@1000 [facility] Ferrous Sulfate ([facility]ous Sulfate) [facility] Last Admin: 05/05/19 08:59 Dose: 325 mg Documented by: Folic Acid (Folic Acid) [facility] Last Admin: 05/05/19 17:20 Dose: 1 mg Documented by: Furosemide (Lasix) 40 mg IV BID@0800,1600 [facility] Last Admin: 05/05/19 17:29 Dose: Not Given Documented by: Sodium Chloride () 250 mls @ 15 mls/hr IV .[id number] PRN PRN Reason: Saline Flush Sodium Chloride () 250 mls @ 15 mls/hr IV .[id number] PRN PRN Reason: Additional IVPB Infusion Levothyroxine Sodium (Synthroid) 137 mcg PO DAILY@0600 [facility] Last Admin: 05/05/19 06:22 Dose: 137 mcg Documented by: Losartan Potassium (Cozaar) 50 mg PO DAILY [facility] Last Admin: 05/05/19 08:59 Dose: 50 mg Documented by: Metoprolol Succinate (Toprol Xl (Beta Jessica)) 25 mg PO DAILY [facility] Last Admin: 05/05/19 08:58 Dose: 25 mg Documented by: Potassium Chloride (K-Dur) [facility] Last Admin: 05/05/19 17:20 Dose: 40 meq Documented by: Sodium Chloride () 10 - 40 ml IV UD PRN PRN Reason: SALINE FLUSH Last Admin: 05/05/19 08:59 Dose: 20 ml Documented by: Warfarin Sodium (Coumadin (Pbkc)) 1 mg PO TuFr@1700 [facility] Last Admin: 05/03/19 20:16 Dose: 1 mg Documented by: Warfarin Sodium (Coumadin (Pbkc)) 2 mg PO SuMoWeThSa@1700 [facility] Last Admin: 05/05/19 17:20 Dose: 2 mg Documented by: STROKE Vital Signs/Narrative: Vital Signs Temp Pulse Resp BP BP Pulse Ox 05/05/19 17:14 93/63 05/05/19 15:12 98.0 F 60 20 H 132/68 H 93 05/05/19 15:00 131 H Medical Necessity - Tobacco Use Smoking Status: Former smoker Tobacco Use: Cigarettes Assessment/Plan All Active Problems (Last Reviewed 04/30/19 @ 10:[address] Alfa Harmon, DO) CHF (congestive heart failure) (Acute) Hypoxemia (Acute) H/O tubal ligation (Resolved) Depression (Acute) CVA (cerebral vascular accident) (Acute) Afib (Acute) Pulmonary HTN (Acute) Pneumonia (Acute) Vitamin D deficiency (Acute) Thyroid disease (Acute) Sleep apnea (Acute) Screening for breast cancer (Acute) RVH (right ventricular hypertrophy) (Acute) Psoriatic arthritis (Acute) Postoperative carotid endarterectomy surveillance, encounter for (Acute) Hypercholesterolemia (Acute) History of CVA (cerebrovascular accident) (Acute) Enlarged heart (Acute) Edema (Acute) CAD S/P percutaneous coronary angioplasty (Acute) Atrial flutter (Acute) History of normal mammogram (Resolved) History of hysterectomy (Resolved) History of colonoscopy (Resolved) History of cataract surgery (Resolved) History of carotid artery reconstruction (Resolved) History of cardiac catherization with stent placement (Resolved) History of breast biopsy (Resolved) History of appendectomy (Resolved) 1. Acute on chronic diastolic CHF, patient has chronic hypoxic respiratory failure on 2 L oxygen at home, complicated by pulmonary hypertension Improving on Lasix, pulmonology consulted, off methotrexate We will continue to monitor per CHF protocol 2. Psoriatic arthritis, on methotrexate, prednisone as needed 3. Chronic atrial fibrillation, controlled, on Coumadin Continue metoprolol, INR in a.m. 4. Rest of chronic medical condition including JOE, history of CVA, hypothyroidism, morbid obesity remain all stable at this point 5. DVT PPx- On coumadin Code Visit Inpatient E&M: 89421 Subs Hosp L2
[2019-05-05] MEDS: HYDROcodone Bitartrate/Apap 5/325 Tablet PO (19:54)
[2019-05-05] MEDS: Atorvastatin Calcium 40 MG Tablet PO (21:02)
[2019-05-06] VITALS (9 sets, daily range): BP systolic 111–116; BP diastolic 63–68; PULSE 73–110; RESP 17–18; TEMP 36.4; O2SAT 86–94
[2019-05-06] MEDS: Levothyroxine 137 MCG Tablet PO (06:02)
[2019-05-06 06:12] LABS: Absolute Lymphocyte Count 1.49 X10^3/uL (0.83-4.51); Absolute Neutrophil Count 5.5 X10^3/uL (2.0-7.7); Basophil# 0.07 X10^3/uL; Basophil% 0.9 % (0-1); Eosinophil# 0.24 X10^3/uL; Hematocrit 38.3 % (37-47); Hemoglobin 11.3 g/dL (12.0-15.0); Lymphocyte # 1.49 X10^3/ul (4.0); Lymphocyte % 18.8 % (19-41); Mean Corp Hgb Conc 29.5 g/dL (32-36); Mean Corpuscular Hgb 29.4 pg (27.0-32.0); Mean Corpuscular Volume 99.7 fL (81-99); Mean Platelet Vol. 9.1 fl (6.2-12.0); Monocyte# 0.55 X10^3/uL; NRBC Flagged by Analyzer 0 % (0-5); Neutrophil # 5.53 X10^3/uL (2.7-7.7); Neutrophil % 69.9 % (47-70); Platelet Count 233 K/mm3 (150-450); RBC Distribution Width CV 17.1 % (11.6-14.6); RBC Distribution Width SD 62.1 fl (35.1-43.9); Red Blood Count 3.84 M/mm3 (4.2-5.4); White Blood Count 7.9 K/mm3 (4.4-11.0)
[2019-05-06 06:20] LABS: International Normalized Ratio 1.8; Prothrombin Time (Protime)PT. 20.7 SECONDS (11.7-14.9)
[2019-05-06 06:28] LABS: ALB/GLOB Ratio 0.8 RATIO (0.9-2.4); AST(SGOT) 19 U/L (15-37); Alanine Aminotransfer ALT/SGPT 19 U/L (13-56); Albumin, Serum 3.2 g/dL (3.2-5.0); Alkaline Phosphatase 94 U/L (45-117); Anion Gap 4 (5-15); BUN 19 mg/dL (7-18); BUN/Creat Ratio 19.6 RATIO (10-20); Calcium,Total 9.2 mg/dL (8.5-10.1); Chloride 100 mmol/L (98-107); Creatinine, Serum 0.97 mg/dL (0.55-1.02); EST Glomerular Filtration Rate 61 mL/min (>60); Est Glom Filt Rate - Afr Amer 74 mL/min (>60); Estimated Creatinine Clearance 47.93 ml/min; Glucose 110 mg/dL (74-106); Protein, Total 7.2 g/dL (6.4-8.2); Sodium Level 139 mmol/L (136-145)
[2019-05-06] MEDS: Folic Acid 1 MG Tablet PO (07:46)
[2019-05-06] MEDS: 0.9% Saline Lock 10 ML Syringe IV (07:47)
[2019-05-06] MEDS: Ferrous Sulfate 325 MG Tablet PO (07:47)
[2019-05-06] MEDS: Aspirin E.C. 81 MG Tablet PO (07:47)
[2019-05-06] MEDS: Furosemide 40 MG/4 ML Vial IV (07:47)
[2019-05-06] MEDS: Clopidogrel Bisulfate 75 MG Tablet PO (09:06)
[2019-05-06] MEDS: Losartan Potassium 50 MG Tablet PO (09:06)
[2019-05-06] MEDS: Metoprolol(XL)Succ 25 MG Tablet PO (09:07)
--- NOTE | 2019-05-06 10:52 | PCM.DC ---
- Discharge Diagnoses Current Active Problems: Current Active and Chronic Problems (Last Reviewed 03/26/19 @ 09:47 by Deena Arthur) CHF (congestive heart failure) (Acute) Chronic respiratory failure (Chronic) Hypoxemia (Acute) You will use the following diet at home:: No restrictions Your food should be the consistency of: Regular Your liquids should be the consistency of: Regular/Thin Discharge Activity: Return to Normal Activity Weight Bearing Status: Full weight bearing Additional Instructions: BMP in one week at your physician's office-send results to Dr. Harmon Allergies/Adverse Reactions: Allergies No Known Allergies Allergy (Unverified 05/03/19 12:36) Medications to take at Discharge clopidogrel 75 mg tablet 75 mg PO DAILY 03/25/19 ergocalciferol (vitamin D2) 1,250 mcg (50,000 unit) capsule 1,250 mcg PO QWEEK 03/25/19 losartan 50 mg tablet 50 mg PO DAILY 03/25/19 metoprolol succinate 25 mg capsule sprinkle, ext. release 24 hr 25 mg PO DAILY 03/25/19 aspirin 81 mg tablet,delayed release 81 mg PO DAILY 03/26/19 Atorvastatin Calcium 40 mg PO QHS 05/03/19 Ferrous Sulfate 325 mg PO DAILY 05/03/19 Folic Acid 1 mg PO BID 05/03/19 Hydrocodone/Acetaminophen [[place] 5-325 Tablet] 1 ea PO PRN PRN 05/03/19 Melatonin [Vitajoy] 2.5 mg PO DAILY 05/03/19 Prednisone 10 mg PO PRN PRN 05/03/19 Furosemide [Lasix] 40 mg PO BIDLX #60 tab 05/06/19 Levothyroxine Sodium [Synthroid] 150 mcg PO DAILY #30 tab 05/06/19 Potassium Chloride [K-Dur] 40 meq PO DAILY #60 tab 05/06/19 Warfarin Sodium [Coumadin] 2 mg PO DAILY #1 tab 05/06/19 The following prescriptions were given: Warfarin Sodium [Coumadin] 2 mg PO DAILY #1 tab Potassium Chloride [K-Dur] 40 meq PO DAILY #60 tab Transmission Status: Pending to [id number] Furosemide [Lasix] 40 mg PO BIDLX #60 tab Transmission Status: Pending to [facility] Levothyroxine Sodium [Synthroid] 150 mcg PO DAILY #30 tab Transmission Status: Pending to [facility] Primary Care Physician: Alejandra James DO [Primary Care Provider] - Please follow up with your Primary Care Physician in: in one week Test Results: Test results from this visit will be discussed in further detail at your follow-up appointment, if applicable. Please Follow Up With: Alejandra James DO Please Follow Up With: Alfa Harmon DO Please Follow Up With: Alfa Harmon DO When: in 2 weeks-call for appointment
--- NOTE | 2019-05-06 11:30 | PHA.DC.MC ---
Pharmacy Service has performed discharge medication reconciliation and counseling for this patient. The patient's discharge medication list was reviewed for discrepancies and discrepancies were resolved. Home Medications clopidogrel 75 mg tablet 75 mg PO DAILY 03/25/19 ergocalciferol (vitamin D2) 1,250 mcg (50,000 unit) capsule 1,250 mcg PO QWEEK 03/25/19 losartan 50 mg tablet 50 mg PO DAILY 03/25/19 metoprolol succinate 25 mg capsule sprinkle, ext. release 24 hr 25 mg PO DAILY 03/25/19 aspirin 81 mg tablet,delayed release 81 mg PO DAILY 03/26/19 Atorvastatin Calcium 40 mg PO QHS 05/03/19 Ferrous Sulfate 325 mg PO DAILY 05/03/19 Folic Acid 1 mg PO BID 05/03/19 Hydrocodone/Acetaminophen [[place] 5-325 Tablet] 1 ea PO PRN PRN 05/03/19 Melatonin [Vitajoy] 2.5 mg PO DAILY 05/03/19 Prednisone 10 mg PO PRN PRN 05/03/19 Furosemide [Lasix] 40 mg PO BIDLX #60 tab 05/06/19 Levothyroxine Sodium [Synthroid] 150 mcg PO DAILY #30 tab 05/06/19 Potassium Chloride [K-Dur] 40 meq PO DAILY #60 tab 05/06/19 Warfarin Sodium [Coumadin] 2 mg PO DAILY #1 tab 05/06/19 The patient was counseled on the following discharge medications and changes in medications for homegoing were reviewed. 1. K-DUR: 40MEQ PO DAILYCM The Reason for Use, instructions for use, and potential side effects were reviewed for all new medications. The patient's questions regarding all of their medications were answered. The patient was able to verbally demonstrate an understanding of their discharge medications. Also discussed dose changes of previously reported home medications. Spoke with patient and answered questions regarding Coumadin use, dietary concerns, INR interpreting, and S/S bleeding.
--- NOTE | 2019-05-06 11:36 | CASEMGMT ---
Pt's order thru [facility] is for 4liters continuous at this time and her sats have been fine on 2.5-4liters at rest while admitted. Pt states her breathing with ambulation is way better then prior to admission. Pt states that Dr. Harmon had already increased her to 6liters with ambulation prior to this admission and she states that her concentrator can support this. Pt states that she has a pulse ox at home and will monitor. Pt declines need for OP/HHC therapy at this time despite therapy recommendations for same at this time. Pt states that she is doing 'much better' than she has in weeks. Pt states no further questions/concerns/needs at this time. Douglas GRAMAJO CM
--- NOTE | 2019-05-06 12:09 | PCM.PN.PUL ---
Subjective: The patient was seen and examined at the bedside this morning. Events from the last 24 hours have been reviewed. The patient is currently afebrile, hemodynamically stable and maintaining appropriate oxygen saturations on 2 L/min via nasal cannula. The patient appears to have improved clinically in the setting of ongoing diuresis. Creatinine remains stable. Objective: The patient's most recent lab work, culture data and imaging studies have all been personally reviewed. Surface echocardiogram revealed mild concentric LVH with an ejection fraction of 60% and stage I diastolic dysfunction. - Physical Exam Vitals/I&O's: Vital Signs Temp Pulse Resp BP Pulse Ox 97.6 F L 110 H 17 116/68 92 05/06/19 10:57 05/06/19 11:00 05/06/19 10:57 05/06/19 10:57 05/06/19 10:57 Oxygen Flow Rate (L/min) [ 6 AMBULATION with Oxygen] Oxygen Flow Rate (L/min) 2 Oxygen Delivery Method Nasal Cannula Weight: 290 lb 5.581 oz Body Mass Index (BMI) 52.0 Intake and Output for Last 24 Hours 05/04/19 05/05/19 05/06/19 23:59 23:59 23:59 Intake Total 1260 / 1460 1150 / 1150 220 / 220 Output Total 900 / 900 Balance 1260 / 1260 250 / 250 220 / 220 General: Alert, Oriented x3, Cooperative, No apparent distress HEENT: Atraumatic, PERRLA, Normocephalic Oral: No Gingival or Mucosal Lesions/ Ulcerations Neck: Supple, No Nodes, Trachea Midline Lungs: No rhonchi, No wheeze, No rales, Diminished Cardiovascular: Regular rate, Regular Rhythm, Normal S1, Normal S2 Abdomen: Bowel Sounds Present, Soft, Non Tender, Obese Extremities: No clubbing, No cyanosis, Edema Skin: No breakdown Musculoskeletal: No Tenderness to Palpation of Joints or Extremities, No Muscle Wasting Lymphatic: No Cervical, Supraclavicular, or Inguinal Adenopathy Neurological: Cranial nerves II-XII grossly intact, Neuro grossly intact Psych/Mental Status: Alert and oriented to time, place, person, mood and affect Labs (Last 48 Hours) 05/04/19 05/04/19 05/05/19 13:45 13:45 05:45 WBC RBC Hgb Hct MCV MCH MCHC RDW Std Deviation RDW Coeff of Omar Plt Count MPV Immature Gran % (Auto) Neut % (Auto) Lymph % (Auto) Yates % (Auto) Eos % (Auto) Baso % (Auto) Absolute Neuts (auto) Absolute Lymphs (auto) Nucleated RBC % PT 22.0 H INR 1.9 Sodium Potassium Chloride Carbon Dioxide Anion Gap BUN Creatinine Estim Creat Clear Calc Est GFR (MDRD) Af Amer Est GFR (MDRD) Non-Af BUN/Creatinine Ratio Glucose Calcium Iron 72 TIBC 331 Iron Saturation 21.8 Total Bilirubin AST ALT Alkaline Phosphatase Total Protein Albumin Globulin Albumin/Globulin Ratio Vitamin B12 Pending Folate 78.10 H TSH 6.41 H 05/05/19 05/06/19 05/06/19 05:45 05:36 05:36 WBC 7.9 RBC 3.84 L Hgb 11.3 L Hct 38.3 MCV 99.7 H MCH 29.4 MCHC 29.5 L RDW Std Deviation 62.1 H RDW Coeff of Omar 17.1 H Plt Count 233 MPV 9.1 Immature Gran % (Auto) 0.400 Neut % (Auto) 69.9 Lymph % (Auto) 18.8 L Yates % (Auto) 7.0 Eos % (Auto) 3.0 Baso % (Auto) 0.9 Absolute Neuts (auto) 5.5 Absolute Lymphs (auto) 1.49 Nucleated RBC % 0 PT 20.7 H INR 1.8 Sodium 139 Potassium 3.9 Chloride 99 Carbon Dioxide 35.0 H Anion Gap 5 BUN 17 Creatinine 1.00 Estim Creat Clear Calc 46.50 Est GFR (MDRD) Af Amer 71 Est GFR (MDRD) Non-Af 59 L BUN/Creatinine Ratio 17.0 Glucose 107 H Calcium 8.8 Iron TIBC Iron Saturation Total Bilirubin AST ALT Alkaline Phosphatase Total Protein Albumin Globulin Albumin/Globulin Ratio Vitamin B12 Folate TSH 05/06/19 05:36 WBC RBC Hgb Hct MCV MCH MCHC RDW Std Deviation RDW Coeff of Omar Plt Count MPV Immature Gran % (Auto) Neut % (Auto) Lymph % (Auto) Yates % (Auto) Eos % (Auto) Baso % (Auto) Absolute Neuts (auto) Absolute Lymphs (auto) Nucleated RBC % PT INR Sodium 139 Potassium 4.0 Chloride 100 Carbon Dioxide 35.0 H Anion Gap 4 L BUN 19 H Creatinine 0.97 Estim Creat Clear Calc 47.93 Est GFR (MDRD) Af Amer 74 Est GFR (MDRD) Non-Af 61 BUN/Creatinine Ratio 19.6 Glucose 110 H Calcium 9.2 Iron TIBC Iron Saturation Total Bilirubin 0.70 AST 19 ALT 19 Alkaline Phosphatase 94 Total Protein 7.2 Albumin 3.2 Globulin 4.0 Albumin/Globulin Ratio 0.8 L Vitamin B12 Folate TSH Clinical Impression(s) from Imaging Studies Chest X-Ray 05/03/19 13:16 IMPRESSION: Basilar congestion and mild degree of CHF. Mild cardiomegaly. Electronically Signed: Erfen Elizabeth, at 13:59 EST , Service support , Current Medications Hydrocodone Bitart/Acetaminophen ([place] 5mg-325mg) 1 tablet PO Q6H PRN PRN PRN Reason: Pain or Fever Last Admin: 05/05/19 19:54 Dose: 1 tablet Documented by: [facility] Last Admin: 05/06/19 07:47 Dose: 81 mg Documented by: Atorvastatin Calcium (Lipitor) 40 mg PO QHS [facility] Last Admin: 05/05/19 21:02 Dose: 40 mg Documented by: Clopidogrel Bisulfate (Plavix) 75 mg PO DAILY [facility] Last Admin: 05/06/19 09:06 Dose: 75 mg Documented by: Ergocalciferol (Vitamin D) 50,000 unit PO Mo@1000 [facility] Last Admin: 05/06/19 09:06 Dose: 50,000 unit Documented by: Ferrous Sulfate (Ferrous Sulfate) [facility] Last Admin: 05/06/19 07:47 Dose: 325 mg Documented by: Folic Acid (Folic Acid) [facility] Last Admin: 05/06/19 07:46 Dose: 1 mg Documented by: Furosemide (Lasix) 40 mg IV BID@0800,1600 [facility] Last Admin: 05/06/19 07:47 Dose: 40 mg Documented by: Sodium Chloride () 250 mls @ 15 mls/hr IV .[id number] PRN PRN Reason: Saline Flush Sodium Chloride () 250 mls @ 15 mls/hr IV .[id number] PRN PRN Reason: Additional IVPB Infusion Levothyroxine Sodium (Synthroid) 137 mcg PO DAILY@0600 [facility] Last Admin: 05/06/19 06:02 Dose: 137 mcg Documented by: Losartan Potassium (Cozaar) 50 mg PO DAILY [facility] Last Admin: 05/06/19 09:06 Dose: 50 mg Documented by: Metoprolol Succinate (Toprol Xl (Beta Jessica)) 25 mg PO DAILY [facility] Last Admin: 05/06/19 09:07 Dose: 25 mg Documented by: Potassium Chloride (K-Dur) 40 meq PO BIDCM [facility] Last Admin: 05/06/19 07:47 Dose: 40 meq Documented by: Sodium Chloride () 10 - 40 ml IV UD PRN PRN Reason: SALINE FLUSH Last Admin: 05/06/19 07:47 Dose: 10 ml Documented by: Warfarin Sodium (Coumadin (Pbkc)) 1 mg PO TuFr@1700 [facility] Last Admin: 05/03/19 20:16 Dose: 1 mg Documented by: Warfarin Sodium (Coumadin (Pbkc)) 2 mg PO SuMoWeThSa@1700 [facility] Last Admin: 05/05/19 17:20 Dose: 2 mg Documented by: Medical Necessity - Tobacco Use Smoking Status: Former smoker Tobacco Use: Cigarettes Assessment/Plan All Active Problems (Last Reviewed 04/30/19 @ 10:[address] Alfa Harmon, DO) CHF (congestive heart failure) (Acute) Hypoxemia (Acute) H/O tubal ligation (Resolved) Depression (Acute) CVA (cerebral vascular accident) (Acute) Afib (Acute) Pulmonary HTN (Acute) Pneumonia (Acute) Vitamin D deficiency (Acute) Thyroid disease (Acute) Sleep apnea (Acute) Screening for breast cancer (Acute) RVH (right ventricular hypertrophy) (Acute) Psoriatic arthritis (Acute) Postoperative carotid endarterectomy surveillance, encounter for (Acute) Hypercholesterolemia (Acute) History of CVA (cerebrovascular accident) (Acute) Enlarged heart (Acute) Edema (Acute) CAD S/P percutaneous coronary angioplasty (Acute) Atrial flutter (Acute) History of normal mammogram (Resolved) History of hysterectomy (Resolved) History of colonoscopy (Resolved) History of cataract surgery (Resolved) History of carotid artery reconstruction (Resolved) History of cardiac catherization with stent placement (Resolved) History of breast biopsy (Resolved) History of appendectomy (Resolved) RECOMMENDATIONS: 1. Perform walking oximetry study prior to consideration for discharge home. The patient needs to be able to ambulate and maintain appropriate oxygen saturations on 6 L/min or less of supplemental oxygen. 2. Continue diuretic therapy. At discharge, I would recommend that the patient be sent home on Lasix 40 mg twice daily. 3. Obtain basic metabolic profile to track renal function in 1 week. 4. Continue to wean supplemental oxygen as tolerated. Maintain oxygen saturations 88 to 92%, given chronic CO2 retention. 5. Outpatient pulmonary follow-up within 2 weeks of discharge is warranted. IMPRESSIONS: 1. Acute on chronic hypoxemic respiratory failure The patient's chronic hypoxemic respiratory failure appears to be worsening with time. While this could be related to an underlying hypersensitivity reaction to methotrexate, I cannot discount the possibility of heart failure contributing to the findings noted on chest CT. The patient has responded clinically to the use of diuretic therapy with subsequent improvement in her oxygenation status and breathing quality. At discharge, would recommend that the patient be placed on Lasix 40 mg twice daily with plans to obtain a BMP 1 week post discharge. Arterial blood gas indicated the presence of chronic CO2 retention, likely secondary to alveolar hypoventilation in the setting of obesity. Recommend weaning oxygen to maintain saturations 88 to 92%. If the patient does not respond clinically to the use of diuretics, consideration can be given to systemic corticosteroids. 2. Restrictive airway disease The patient's most symptoms recent pulmonary function studies revealed evidence of a restrictive ventilatory impairment with symmetric reduction in diffusing capacity. The patient's most recent high-resolution chest CT did reveal a focal area of bronchiectasis in the left lower lobe with nonspecific bilateral groundglass changes. In addition, she is on chronic methotrexate therapy. The findings noted on the chest CT could certainly represent a component of pulmonary edema versus that of a hypersensitivity reaction to the patient's methotrexate. 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 Agree with attempts at diuresis for now. 3. Obstructive sleep apnea Continue CPAP therapy at 9 cm of water, per home regimen with naps and nightly. 4. Morbid obesity/alveolar hypoventilation/psoriatic arthritis/coronary artery disease Complicates care, management, recovery and prognosis. Okay to continue home medications as indicated. Encourage incentive spirometer use. This note was generated with [employer] software. It may contain incorrect words, spelling, and punctuation that were not noted in checking the note before signing. Code Visit Inpatient E&M: 04124 Subs Hosp L2
[2019-05-07 09:27] LABS: Vitamin B12 486 pg/mL (211-911)
--- NOTE | 2019-05-08 08:44 | PCM.DC.SUM ---
Discharge Date and Diagnosis Date of Admission: 05/03/19 Date of Discharge: 05/06/19 - Primary Discharge Diagnosis #1 acute on chronic diastolic congestive heart failure #2 chronic atrial fibrillation #3 psoriatic arthritis #4 obstructive sleep apnea #5 class III obesity #6 coronary artery disease #7 restrictive airway disease #8 acute on chronic hypoxic respiratory failure - Secondary Discharge Diagnosis Chronic Problems (Last Reviewed 03/26/19 @ 09:47 by Deena Arthur) Chronic respiratory failure (Chronic) Hypertension (Chronic) Hospital Course and Treatment Operations: None Procedures: 2-D Echocardiogram Summary of Care Provided: The patient is a 68 year old F was seen in the emergency room at [facility] [place] with a chief complaint of shortness of breath. Patient has a history of restrictive ventilatory impairment and obstructive sleep apnea as well as morbid obesity. Patient is on home O2 chronically at 6 L. She came to the ER after her pulse ox was low at home on 6 L O2. Work-up in the emergency room revealed an elevated beta natruretic peptide, patient was hypoxic on ambulation, she was given IV Lasix and admitted to PCU. She was seen in consultation by pulmonary medicine. Patient was maintained on IV Lasix on PCU, her oxygen was able to be weaned to 2 L at rest. On 05/06/2019, patient was seen and examined: On examination she appeared in good health and spirits. Vital signs as documented. Skin warm and dry and without overt rashes. Neck without JVD. Lungs clear. Heart exam notable for irregular rhythm, no rubs or gallops. Abdomen unremarkable and without evidence of organomegaly, masses, or abdominal aortic enlargement. Patient is obese. Extremities nonedematous. Neuro: Cranial nerves II through XII are grossly intact, no focal motor deficits were noted, sensation to light touch and pinprick is intact. Psych: Patient is alert and oriented x3, she does not appear anxious or depressed On 05/06/2019, patient was seen and examined and felt to be in stable condition for discharge home - Physical Exam Vitals/I&O's: Vital Signs Temp Pulse Resp BP Pulse Ox 97.6 F L 110 H 17 116/68 92 05/06/19 10:57 05/06/19 11:00 05/06/19 10:57 05/06/19 10:57 05/06/19 10:57 Oxygen Flow Rate (L/min) [ 6 AMBULATION with Oxygen] Oxygen Flow Rate (L/min) 2 Oxygen Delivery Method Nasal Cannula Weight: 131.7 kg Body Mass Index (BMI) 52.0 Intake and Output for Last 24 Hours 05/06/19 05/07/19 05/08/19 23:59 23:59 23:59 Intake Total 220 / 220 Balance 220 / 220 Laboratory Results 05/04/19 13:45: Vitamin B12 486 Discharge Diet: No Restrictions Discharge Activity: Return to Normal Activity Weight Bearing Status: Full weight bearing Home Medications: Medications to take at Discharge clopidogrel 75 mg tablet 75 mg PO DAILY 03/25/19 ergocalciferol (vitamin D2) 1,250 mcg (50,000 unit) capsule 1,250 mcg PO QWEEK 03/25/19 losartan 50 mg tablet 50 mg PO DAILY 03/25/19 metoprolol succinate 25 mg capsule sprinkle, ext. release 24 hr 25 mg PO DAILY 03/25/19 aspirin 81 mg tablet,delayed release 81 mg PO DAILY 03/26/19 Atorvastatin Calcium 40 mg PO QHS 05/03/19 Ferrous Sulfate 325 mg PO DAILY 05/03/19 Folic Acid 1 mg PO BID 05/03/19 Hydrocodone/Acetaminophen [[place] 5-325 Tablet] 1 ea PO PRN PRN 05/03/19 Melatonin [Vitajoy] 2.5 mg PO DAILY 05/03/19 Prednisone 10 mg PO PRN PRN 05/03/19 Furosemide [Lasix] 40 mg PO BIDLX #60 tab 05/06/19 Levothyroxine Sodium [Synthroid] 150 mcg PO DAILY #30 tab 05/06/19 Potassium Chloride [K-Dur] 40 meq PO DAILY #60 tab 05/06/19 Warfarin Sodium [Coumadin] 2 mg PO DAILY #1 tab 05/06/19 Following Prescrptions Were Given to Patient: Warfarin Sodium [Coumadin] 2 mg PO DAILY #1 tab Potassium Chloride [K-Dur] 40 meq PO DAILY #60 tab Transmission Status: Received by [id number] Furosemide [Lasix] 40 mg PO BIDLX #60 tab Transmission Status: Received by [facility] Levothyroxine Sodium [Synthroid] 150 mcg PO DAILY #30 tab Transmission Status: Received by [id number] Primary Care Physician: Oberhauser,Alejandra, DO [Primary Care Provider] - Please follow up with your Primary Care Physician in: in one week Please Follow Up With: Alejandra James DO Please Follow Up With: Alfa Harmon DO Please Follow Up With: Alfa Harmon DO When: in 2 weeks-call for appointment Disposition: Home Minutes spent on discharge:: 32 Patient Condition:: Stable Medical Necessity - Tobacco Use Smoking Status: Former smoker Tobacco Use: Cigarettes Meaningful Use Info Meaningful Use Diagnoses (Choose all that apply): CHF - CHF KOKI/ARB ordered at discharge?: Yes Documented LVEF (%): 60 Code Visit Inpatient E&M: 21491 Disch Hosp
== END 2019-05-06 12:16 | disposition home or self-care (01) | DRG 291 ==
LOC: ED 16:51 → PCU 17:24
PROVIDERS: Internal Medicine; Physician Assistant; Admitting Provider Family Medicine; Emergency Provider Emergency Medicine; PCP Internal Medicine; Visit Provider Internal Medicine
DX: I11.0 Hypertensive heart disease with heart failure (principal); J96.21 Acute and chronic respiratory failure with hypoxia; Z68.43 Body mass index [BMI] 50.0-59.9, adult; I48.20 Chronic atrial fibrillation, unspecified; I50.33 Acute on chronic diastolic (congestive) heart failure; I25.10 Atherosclerotic heart disease of native coronary artery without angina pectoris; E66.01 Morbid (severe) obesity due to excess calories; L40.50 Arthropathic psoriasis, unspecified; E03.9 Hypothyroidism, unspecified; Z99.81 Dependence on supplemental oxygen; G47.33 Obstructive sleep apnea (adult) (pediatric); Z79.899 Other long term (current) drug therapy; Z95.5 Presence of coronary angioplasty implant and graft; Z86.73 Personal history of transient ischemic attack (TIA), and cerebral infarction without residual deficits; D53.9 Nutritional anemia, unspecified; I27.20 Pulmonary hypertension, unspecified; Z87.891 Personal history of nicotine dependence
CPT/HCPCS: 36415; 36600; 71046; 80048; 80053; 82607; 82746; 82803; 83540; 83550; 83880; 84443; 84484; 85025; 85610; 93005; 93306; 97162; 99285; Q9957; A4216; C8929; J1940

== ENCOUNTER → 2019-08-07 11:13 | Outpatient (CLI) | payer MEDICARE, SELFPAY ==
[2019-05-23 12:54] VITALS: BMI 52.0
[2019-08-07 12:06] VITALS: PULSE 75; PULSE 78; PULSE 92; PULSE 94; PULSE 96; PULSE 97; PULSE 98; O2SAT 2; O2SAT 86; O2SAT 90; O2SAT 93; O2SAT 94; O2SAT 99
--- NOTE | 2019-08-07 12:11 | CPS ---
PATIENT ARRIVED VIA W/C ON HER OWN OXYGEN AT HER BASELINE RESPIRATORY STATUS FOR WALK TEST. PLACED ON RA PRIOR TO BEGINNING. AT REST SPO2 86% SO TEST BEGAN ON 2LPM. D/T SPO2 AT 88% ON 2LPM, INCREASED TO 3LPM FOR REMAINDER OF TESTING. RIGHT HIP PAIN AND INCREASED WOB LIMITED PT T/O TESTING. PT USED CANE FOR AMBULATION.
--- NOTE | 2019-08-07 14:22 | WT_ITS ---
PSN 6 Minute Walk Test - 6 Minute Walk Test 6 Minute Walk Test: 6 Minute Walk Test PSN:6-Minute Walk Test Start: 08/07/19 12:05 Freq: Status: Active Protocol: [id number] Document 08/07/19 12:06 [facility] (Rec: 08/07/19 12:16 [facility] [id number]) 6 Minute Walk Test Date Performed 08/07/19 Time Performed 11:45 Height 5 ft 4 in Weight: 133.81 kg Weight in Pounds 295.[address]: Sue Kearney Assistive device used: Cane Pre-test Oxygen Delivery Method Room Air Pulse Ox (%) 86 Pulse Rate (60-100 beats/min) 75 Dyspnea Yon Scale (0-10) 3 1st minute Oxygen Flow Rate (L/min) (L/min) 88 Oxygen Delivery Method Nasal Cannula Pulse Ox (%) 2 Pulse Rate (60-100 beats/min) 92 Dyspnea Yon Scale (0-10) 5 Number of Rests Taken 1 Reported Symptoms Increased Work of Breathing 2nd minute Oxygen Flow Rate (L/min) (L/min) 3 Oxygen Delivery Method Nasal Cannula Pulse Ox (%) 90 Pulse Rate (60-100 beats/min) 96 Dyspnea Yon Scale (0-10) 5 Number of Rests Taken 1 Reported Symptoms Increased Work of Breathing 3rd minute Oxygen Flow Rate (L/min) (L/min) 3 Oxygen Delivery Method Nasal Cannula Pulse Ox (%) 93 Pulse Rate (60-100 beats/min) 98 Dyspnea Yon Scale (0-10) 4 Number of Rests Taken 1 Reported Symptoms Increased Work of Breathing 4th minute Oxygen Flow Rate (L/min) (L/min) 3 Oxygen Delivery Method Nasal Cannula Pulse Ox (%) 93 Pulse Rate (60-100 beats/min) 97 Dyspnea Yon Scale (0-10) 4 Number of Rests Taken 1 Reported Symptoms Increased Work of Breathing 5th minute Oxygen Flow Rate (L/min) (L/min) 3 Oxygen Delivery Method Nasal Cannula Pulse Ox (%) 93 Pulse Rate (60-100 beats/min) 96 Dyspnea Yon Scale (0-10) 5 Number of Rests Taken 1 Reported Symptoms Increased Work of Breathing 6th minute Oxygen Flow Rate (L/min) (L/min) 3 Oxygen Delivery Method Nasal Cannula Pulse Ox (%) 94 Pulse Rate (60-100 beats/min) 94 Dyspnea Yon Scale (0-10) 4 Number of Rests Taken 1 Reported Symptoms Increased Work of Breathing Post-test Oxygen Flow Rate (L/min) (L/min) 3 Oxygen Delivery Method Nasal Cannula Pulse Ox (%) 99 Pulse Rate (60-100 beats/min) 78 Dyspnea Yon Scale (0-10) 3 Full Laps Walked 4 Partial Lap, Number of Tiles Walked 13 Total Distance Walked (ft) 249 08/07/19 12:11 Cardiopulmonary Services by Yasemin Bañuelos PATIENT ARRIVED VIA W/C ON HER OWN OXYGEN AT HER BASELINE RESPIRATORY STATUS FOR WALK TEST. PLACED ON RA PRIOR TO BEGINNING. AT REST SPO2 86% SO TEST BEGAN ON 2LPM. D/T SPO2 AT 88% ON 2LPM, INCREASED TO 3LPM FOR REMAINDER OF TESTING. RIGHT HIP PAIN AND INCREASED WOB LIMITED PT T/O TESTING. PT USED CANE FOR AMBULATION. Initialized on 08/07/19 12:11 - END OF NOTE - Interpretation Interpretation: The patient was noted to be 86% on room air at rest. The patient improved on 2 L with improvement to 90%. The patient desaturated in the first minute and had to be increased to 3 L nasal cannula. Patient was able to maintain saturations for the remainder of the study. In total, the patient traveled 249 feet over the course of 6 minutes with the assistance of a cane and 6 breaks. These findings are consistent with a respiratory limitation exercise tolerance. - Recommendations Recommendations: The patient requires 2 L nasal cannula at rest, but should be using 3 L nasal cannula with any exertion.
== END ==
PROVIDERS: PCP Internal Medicine; Referring Provider Nurse Practitioner Acute Care; Visit Provider Nurse Practitioner Acute Care
DX: R06.02 Shortness of breath (principal)
CPT/HCPCS: 94618

== ENCOUNTER → 2019-08-08 12:40 | Outpatient (CLI) | payer MEDICARE, SELFPAY ==
[2019-05-23 12:54] VITALS: BMI 52.0
--- NOTE | 2019-08-08 16:01 | PFTCOMP_ITS ---
COMPLETE PULMONARY FUNCTION TEST INTERPRETATION Brief HPI: Patient is a 68 year old female, currently under the care of Dr. Harmon, who presents to [facility] for complete pulmonary function tests secondary to diagnosis of dyspnea. Respiratory therapist reports good effort and reproducible results. Interpretation: Forced expiration spirometry shows no large airways obstructive ventilatory defect with an FEV1 of 66% predicted. There is no significant bronchodilator response by strict ATS criteria. Spirograms are of good quality and plateau normally. The respiratory flow volume loop shows a normal pattern. Lung volumes by body plethysmography show a decreased total lung capacity at 3.18 L, 66% predicted. All other lung volumes are reduced symmetrically. Diffusion capacity by carbon monoxide is decreased at 43% predicted. The airway resistance is normal. No previous pulmonary function tests were available for review. Impression: Moderate restrictive ventilatory defect with a symmetric reduction in diffusion capacity.
== END ==
PROVIDERS: PCP Internal Medicine; Referring Provider Nurse Practitioner Acute Care; Visit Provider Nurse Practitioner Acute Care
DX: R06.02 Shortness of breath (principal)
CPT/HCPCS: 94060; 94726; 94729

== ENCOUNTER → 2019-09-10 15:41 | Outpatient (CLI) | payer MEDICARE, SELFPAY ==
[2019-05-23 12:54] VITALS: BMI 52.0
--- NOTE | 2019-09-10 15:45 | RAD_ITS ---
STUDY: X-RAY - RIGHT KNEE REASON FOR EXAM: Female, 68 years old. Pain. TECHNIQUE: 4 view(s) of the knee. COMPARISON: None. FINDINGS: Normal visualized distal femur. Normal visualized proximal tibia and fibula. Normal proximal tibiofibular articulation. There is no acute fracture, dislocation or destructive osseous pathology. Normal medial femorotibial compartment. Normal lateral femorotibial compartment. Normal patellofemoral articulation. There is no demonstrated joint effusion. The soft tissue structures are unremarkable. RAD/Knee 4 or More Views IMPRESSION: Normal x-ray examination of the knee. Electronically Signed: Hiram Hidalgo DO at 16:33 EDT Tel [phone], Service support ,
--- NOTE | 2019-09-10 15:45 | RAD_ITS ---
STUDY: X-RAY - PELVIS AND RIGHT HIP REASON FOR EXAM: Female, 68 years old. Pain. TECHNIQUE: 4 views of the pelvis and hip. COMPARISON: None. FINDINGS: There is a non-specific bowel gas pattern. Normal visualized soft tissue structures. Normal bilateral iliac wings, sacroiliac joints and visualized sacrum. Normal bilateral superior and inferior pubic rami. Normal pubic symphysis. Normal bilateral ischial tuberosities. Normal visualized right femoral head. There is osteoarthritic spur formation of the right acetabular rim. There is moderate articular joint space narrowing of the right hip. RAD/HIP, UNI W/ Pelvis 2-3 Views IMPRESSION: Degenerative changes of the right hip. Electronically Signed: Hiram Hidalgo DO at 16:34 EDT Tel [phone], Service support ,
== END ==
PROVIDERS: PCP Internal Medicine; Referring Provider Internal Medicine Rheumatology; Visit Provider Internal Medicine Rheumatology
DX: L40.59 Other psoriatic arthropathy (principal); M16.11 Unilateral primary osteoarthritis, right hip; I10 Essential (primary) hypertension; E03.9 Hypothyroidism, unspecified; E78.5 Hyperlipidemia, unspecified; I69.30 Unspecified sequelae of cerebral infarction; R51 Headache; I11.0 Hypertensive heart disease with heart failure; I50.9 Heart failure, unspecified; G47.33 Obstructive sleep apnea (adult) (pediatric); E66.9 Obesity, unspecified; I27.20 Pulmonary hypertension, unspecified; I48.92 Unspecified atrial flutter; I25.10 Atherosclerotic heart disease of native coronary artery without angina pectoris; J98.4 Other disorders of lung; Z79.899 Other long term (current) drug therapy
CPT/HCPCS: 73502; 73564

== ENCOUNTER → 2021-10-19 | Outpatient (CLI) | payer MEDICARE, SELFPAY ==
--- NOTE | 2021-10-20 08:40 | PFT ---
INTRODUCTION: The patient is a 70-year-old female that presents for pulmonary function studies secondary to a diagnosis of dyspnea. Respiratory therapy reported good patient effort. Bronchodilators were used during testing. INTERPRETATION: Forced expiration spirometry demonstrates no evidence of a large airways obstructive ventilatory defect. There was no significant response to aerosolized bronchodilators. Spirograms are of good quality and plateau normally. Body plethysmography was performed and revealed a decreased TLC to 3.05 L, 63% of predicted, indicative of a moderate restrictive ventilatory impairment. Diffusing capacity by single breath CO is reduced at 41% of predicted. IMPRESSION: Moderate restrictive ventilatory impairment with symmetric reduction in diffusing capacity.
== END | disposition home or self-care (01) ==
LOC: PSN 12:41
PROVIDERS: PCP Internal Medicine; Referring Provider Nurse Practitioner Acute Care; Visit Provider Nurse Practitioner Acute Care
DX: R06.02 Shortness of breath (principal)
CPT/HCPCS: 94060; 94726; 94729

== ENCOUNTER → 2022-05-25 | Outpatient (CLI) | payer MEDICARE, SELFPAY ==
[2022-05-27 16:09] LABS: QNTFERON TB Mitogen Value > 10.00 IU/mL (.); QNTFERON TB Nil Value 0.06 IU/mL (.); QNTFERON TB1+ Ag Value 0.06 IU/mL (.); QNTFERON TB2+ Ag Value 0.06 IU/mL (.)
[2022-05-27 17:07] LABS: QNTIFERON TB Positive Criteria Negative (Negative)
== END | disposition home or self-care (01) ==
LOC: MTLAB 10:52
PROVIDERS: PCP Internal Medicine; Referring Provider Internal Medicine Rheumatology; Visit Provider Internal Medicine Rheumatology
DX: L40.59 Other psoriatic arthropathy (principal); Z79.899 Other long term (current) drug therapy
CPT/HCPCS: 36415; 86480

== ENCOUNTER → 2022-12-13 | Outpatient (CLI) | payer MEDICARE, SELFPAY ==
[2022-12-13 10:04] LABS: Absolute Lymphocyte Count 2.57 X10^3/uL (0.83-4.51); Absolute Neutrophil Count 5.6 X10^3/uL (2.0-7.7); Basophil# 0.08 X10^3/uL; Basophil% 0.9 % (0-1); Eosinophil# 0.15 X10^3/uL; Eosinophils% 1.6 % (0-5); Hematocrit 39.8 % (37-47); Hemoglobin 12.6 g/dL (12.0-15.0); Lymphocyte # 2.57 X10^3/ul (0.83-4.51); Lymphocyte % 28.1 % (19-41); Mean Corp Hgb Conc 31.7 g/dL (32-36); Mean Corpuscular Hgb 31.1 pg (27.0-32.0); Mean Corpuscular Volume 98.3 fL (81-99); Mean Platelet Vol. 9.6 fl (6.2-12.0); Monocyte# 0.64 X10^3/uL; NRBC Flagged by Analyzer 0 % (0-5); Neutrophil # 5.58 X10^3/uL (2.7-7.7); Neutrophil % 61.2 % (47-70); Platelet Count 177 K/mm3 (150-450); RBC Distribution Width CV 14.5 % (11.6-14.6); RBC Distribution Width SD 52.6 fl (35.1-43.9); Red Blood Count 4.05 M/mm3 (4.2-5.4); White Blood Count 9.1 K/mm3 (4.4-11.0)
[2022-12-13 10:41] LABS: AST(SGOT) 30 U/L (15-37); Alanine Aminotransfer ALT/SGPT 38 U/L (13-56); Albumin, Serum 3.9 g/dL (3.2-5.0); Alkaline Phosphatase 64 U/L (45-117); Anion Gap 8 (5-15); BUN 19 mg/dL (7-18); Calcium,Total 8.9 mg/dL (8.5-10.1); Chloride 101 mmol/L (98-107); EST Glomerular Filtration Rate 58 mL/min (>60); Est Glom Filt Rate - Afr Amer 70 mL/min (>60); Globulin 3.8 g/dL (2.2-4.2); Glucose 146 mg/dL (74-106); Potassium 3.4 mmol/L (3.5-5.1); Protein, Total 7.7 g/dL (6.4-8.2); Sodium Level 140 mmol/L (136-145)
== END | disposition home or self-care (01) ==
LOC: MTLAB 08:22
PROVIDERS: PCP Internal Medicine; Referring Provider Internal Medicine Rheumatology; Visit Provider Internal Medicine Rheumatology
DX: L40.59 Other psoriatic arthropathy (principal); R51.9 Headache, unspecified; Z79.899 Other long term (current) drug therapy
CPT/HCPCS: 36415; 80053; 85025